=== PATIENT | female | born 1970 | race Hispanic/Latino ===

== ENCOUNTER 2017-08-28 18:52 | Emergency (ER) | payer MEDICARE, OTHER ==
[2017-08-28 20:03] LABS: #Basophils 0.1 thou/uL (0.0-0.2); #Eosinphils 0.2 thou/uL (0.0-0.7); #Lymphocytes 2.4 thou/uL (1.20-3.40); #Monocytes 0.3 thou/uL (0.11-0.59); #Neutrophils 4.8 thou/uL (1.40-6.50); %Basophils 0.7 % (0.0-1.0); %Eosinophils 2.3 % (0.0-10.0); %Monocytes 4.3 % (0.0-10.0); %Neutrophils 61.8 % (42.0-75.0); Hemoglobin 12.4 g/dL (12.0-16.0); Mean Corpuscular HGB CONC 34.7 g/dL (32.0-36.0); Mean Corpuscular Hemoglobin 28.8 pg (27.0-31.0); Mean Corpuscular Volume 83.1 fL (78.0-98.0); Mean Platelet Volume 11.7 fL (7.4-10.4); Platelet Count 135 thou/uL (130-400); RBC Distribution Width 12.1 % (11.5-14.5); Red Blood Cell (RBC) Count 4.32 mill/uL (4.20-5.40); White Blood Cell (WBC) Count 7.8 thou/uL (4.8-10.8)
[2017-08-28 20:28] LABS: ALT (SGPT) 43 U/L (8-55); AST (SGOT) 43 U/L (5-34); Albumin 3.7 g/dL (3.5-5.0); Alkaline Phosphatase 198 U/L (40-150); Anion Gap 11 mmol/L (10-20); BUN (Urea Nitrogen) 13 mg/dL (7.0-18.7); Bilirubin, Total 0.2 mg/dL (0.2-1.2); Calc. Creatinine Clearance 0 mL/min (70-130); Calcium 9.3 mg/dL (7.8-10.44); Carbon Dioxide 21 mmol/L (22-29); Chloride 109 mmol/L (98-107); Estimated GFR-MDRD 49; Globulin 3.2 g/dL (2.4-3.5); Glucose 229 mg/dL (70-105); Lipase 4 U/L (8-78); Potassium 4.1 mmol/L (3.5-5.1); Protein, Total 6.9 g/dL (6.0-8.3); Sodium 137 mmol/L (136-145)
[2017-08-28 23:13] LABS: Bilirubin Negative (Negative); Blood, Urine Small (Negative); Clarity CLEAR (Clear); Glucose, Urine (Dipstick) 500 mg/dL (Negative); Leukocyte Negative (Negative); Nitrite Negative (Negative); Protein, Urine (Dipstick) 300 mg/dL (Neg-Trace); Specific Gravity, Urine 1.023 (1.002-1.036); Urobilinogen 0.2 mg/dL (0.2-1.0); pH, Urine 5.5 (5.0-9.0)
[2017-08-28 23:16] LABS: Bacteria/HPF None Seen HPF (None Seen); Hyaline Casts/LPF 0-3 HYALINE CAST LPF (0-3 Hyaline); Pathc Cast-AUWi Flag 0.29 (0-2.49); Squamous Epithelial 0-3 HPF (0-3)
[2017-08-28] MEDS ORDERED: Ketorolac Tromethamine 60 MG/2 ML VIAL ONE (23:53)
== END 2017-08-28 23:59 | disposition home or self-care (01) ==
LOC: ERS 18:52
DX: M54.5 Low back pain (principal); E11.9 Type 2 diabetes mellitus without complications; F41.9 Anxiety disorder, unspecified; Z87.891 Personal history of nicotine dependence; Z79.899 Other long term (current) drug therapy; Z79.4 Long term (current) use of insulin
CPT/HCPCS: 36415; 36416; 80053; 81003; 81015; 83605; 83690; 85025; 87040; 87086; 99283; J1885; J2270

== ENCOUNTER 2018-01-24 19:57 | Emergency (ER) | payer MEDICARE, OTHER ==
[2018-01-24 20:36] LABS: #Basophils 0.1 thou/uL (0.0-0.2); #Eosinphils 0.2 thou/uL (0.0-0.7); #Lymphocytes 3.5 thou/uL (1.20-3.40); #Monocytes 0.5 thou/uL (0.11-0.59); #Neutrophils 7.1 thou/uL (1.40-6.50); %Basophils 0.6 % (0.0-1.0); %Eosinophils 1.7 % (0.0-10.0); %Monocytes 4.8 % (0.0-10.0); Hemoglobin 12.3 g/dL (12.0-16.0); Mean Corpuscular Hemoglobin 27.7 pg (27.0-31.0); Mean Platelet Volume 11.9 fL (7.4-10.4); Platelet Count 150 thou/uL (130-400); RBC Distribution Width 12.1 % (11.5-14.5); Red Blood Cell (RBC) Count 4.45 mill/uL (4.20-5.40); White Blood Cell (WBC) Count 11.4 thou/uL (4.8-10.8)
[2018-01-24 20:57] LABS: ALT (SGPT) 46 U/L (8-55); AST (SGOT) 44 U/L (5-34); Albumin 3.2 g/dL (3.5-5.0); Alkaline Phosphatase 196 U/L (40-150); Anion Gap 11 mmol/L (10-20); BUN (Urea Nitrogen) 8 mg/dL (7.0-18.7); Bilirubin, Total 0.2 mg/dL (0.2-1.2); Calc. Creatinine Clearance 0 mL/min (70-130); Calcium 8.9 mg/dL (7.8-10.44); Carbon Dioxide 26 mmol/L (22-29); Chloride 108 mmol/L (98-107); Estimated GFR-MDRD 72; Globulin 3.4 g/dL (2.4-3.5); Glucose 86 mg/dL (70-105); Lipase Less than 4 U/L (8-78); Protein, Total 6.6 g/dL (6.0-8.3); Sodium 141 mmol/L (136-145)
[2018-01-24 21:00] LABS: Bilirubin Negative (Negative); Blood, Urine Trace (Negative); Clarity CLEAR (Clear); Glucose, Urine (Dipstick) Negative (Negative); Leukocyte Negative (Negative); Nitrite Negative (Negative); Protein, Urine (Dipstick) 100 mg/dL (Neg-Trace); Urobilinogen 0.2 mg/dL (0.2-1.0); pH, Urine 7.5 (5.0-9.0)
[2018-01-24 21:01] LABS: Bacteria/HPF None Seen HPF (None Seen); Hyaline Casts/LPF 0-3 HYALINE CAST LPF (0-3 Hyaline); Squamous Epithelial 0-3 HPF (0-3); WBC/HPF 0-3 HPF (0-3)
[2018-01-24] MEDS ORDERED: Ibuprofen 800 MG TAB ONE (21:41)
--- NOTE | 2018-01-24 22:41 | ULT ---
GALLBLADDER ULTRASOUND: 01/24/18 HISTORY: Right upper quadrant pain. Real time imaging of the right upper quadrant shows a normal appearing gallbladder. Common duct is in the 5 mm range. No gallbladder wall thickening. The liver is of increased echogenicity measuring 18 cm in length. The pancreas is only partially visualized. In the pancreatic head region, there is an echogenic focus with shadowing which is probably within the pancreatic duct. Difficult to visualize as the pancreas is largely obscured. Right kidney is normal in size and not obstructed. IMPRESSION: 1. Fatty change of the liver. 2. Pancreatic stone which is probably within the pancreatic duct. POS: ROSALIA
[2018-01-24] MEDS ORDERED: Morphine 2 MG/ML SYRINGE ONE (23:13)
== END 2018-01-24 23:37 | disposition home or self-care (01) ==
LOC: ERS 19:57
DX: K86.89 Other specified diseases of pancreas (principal); I10 Essential (primary) hypertension; E11.9 Type 2 diabetes mellitus without complications; F41.9 Anxiety disorder, unspecified; Z87.891 Personal history of nicotine dependence; Z79.4 Long term (current) use of insulin; Z79.899 Other long term (current) drug therapy
CPT/HCPCS: 36415; 36416; 76705; 80053; 81003; 81015; 83690; 85025; 96361; 96374; J2270

== ENCOUNTER 2018-05-14 13:36 | Emergency (ER) | payer MEDICARE, OTHER ==
[2018-05-14] MEDS ORDERED: ISOVUE-370 76%-LOCM 1 ML ONE (13:46)
[2018-05-14] MEDS ORDERED: Acetaminophen 500 MG TAB ONE (14:24)
[2018-05-14] MEDS ORDERED: Ondansetron PF 4 MG/2 ML Vial ONE (14:24)
[2018-05-14 14:50] LABS: #Basophils 0.1 thou/uL (0.0-0.2); #Eosinphils 0.1 thou/uL (0.0-0.7); #Lymphocytes 3.6 thou/uL (1.20-3.40); #Monocytes 0.7 thou/uL (0.11-0.59); #Neutrophils 12.8 thou/uL (1.40-6.50); %Basophils 0.6 % (0.0-1.0); %Eosinophils 0.8 % (0.0-10.0); %Lymphocytes 20.7 % (21.0-51.0); %Monocytes 4.1 % (0.0-10.0); %Neutrophils 73.8 % (42.0-75.0); Hemoglobin 11.3 g/dL (12.0-16.0); Mean Corpuscular HGB CONC 33.3 g/dL (32.0-36.0); Mean Corpuscular Hemoglobin 28.1 pg (27.0-31.0); Mean Corpuscular Volume 84.5 fL (78.0-98.0); Mean Platelet Volume 12.2 fL (7.4-10.4); Platelet Count 143 thou/uL (130-400); RBC Distribution Width 12.2 % (11.5-14.5); Red Blood Cell (RBC) Count 4.03 mill/uL (4.20-5.40); White Blood Cell (WBC) Count 17.4 thou/uL (4.8-10.8)
[2018-05-14 15:02] LABS: ALT (SGPT) 22 U/L (8-55); AST (SGOT) 18 U/L (5-34); Albumin 3.4 g/dL (3.5-5.0); Alkaline Phosphatase 160 U/L (40-150); Anion Gap 11 mmol/L (10-20); BUN (Urea Nitrogen) 14 mg/dL (7.0-18.7); Bilirubin, Total 0.4 mg/dL (0.2-1.2); Calc. Creatinine Clearance 0 mL/min (70-130); Calcium 8.5 mg/dL (7.8-10.44); Carbon Dioxide 24 mmol/L (22-29); Chloride 105 mmol/L (98-107); Estimated GFR-MDRD 53; Globulin 2.8 g/dL (2.4-3.5); Glucose 199 mg/dL (70-105); Lipase Less than 4 U/L (8-78); Potassium 4.2 mmol/L (3.5-5.1); Protein, Total 6.2 g/dL (6.0-8.3); Sodium 136 mmol/L (136-145)
[2018-05-14 15:28] LABS: Bilirubin Negative (Negative); Blood, Urine Small (Negative); Clarity CLEAR (Clear); Glucose, Urine (Dipstick) Negative (Negative); Leukocyte Negative (Negative); Nitrite Negative (Negative); Protein, Urine (Dipstick) 100 mg/dL (Neg-Trace); Specific Gravity, Urine 1.008 (1.002-1.036); Urobilinogen 0.2 mg/dL (0.2-1.0)
[2018-05-14 15:29] LABS: Pregnancy Test - Urine (BHCG) Negative (Negative); Pregu Control Background? CLEAR/WHITE (CLR/WHITE); Pregu Control Bar Appear? YES (CONTROL BAR); Specific Gravity 1.008 (1.002-1.036)
[2018-05-14 15:31] LABS: Bacteria/HPF None Seen HPF (None Seen); Hyaline Casts/LPF 0-3 HYALINE CAST LPF (0-3 Hyaline); Pathc Cast-AUWi Flag 0.27 (0-2.49); RBC/HPF 0-3 HPF (0-3); Squamous Epithelial 0-3 HPF (0-3); WBC/HPF 0-3 HPF (0-3)
[2018-05-14] MEDS ORDERED: Ketorolac Tromethamine 30 MG/ML VIAL ONE (15:41)
--- NOTE | 2018-05-14 16:00 | CT ---
FCT abdomen and pelvis with IV contrast. Oral contrast was not administered. INDICATIONS: Abdominal pain COMPARISON: 11/10/2015 FINDINGS: The 7 mm nodule in the right lung base adjacent to the diaphragm is stable. Nonspecific interstitial markings in the posterior right lung base is noted. Liver, spleen, and pancreas appear unremarkable. Pancreatic calcifications are again seen. Mild pancr eatic atrophy, stable from prior exam. Stomach and duodenum appear unremarkable. Adrenal glands appear normal. Kidneys appear unremarkable. Collecting structures and urinary bladder appear unremarkable. Small bowel loops are normal caliber and exhibit normal fold pattern. Appendix is identified and appears unremarkable. Colon is unremarkable. Aorta is normal caliber. No evidence of retroperitoneal or mesenteric adenopathy. Patient appears to be posthysterectomy. Pelvic structures unremarkable. Subcutaneous tissues, abdominal wall, and muscular structures appear unremarkable. Osseous structures appear unremarkable. IMPRESSION: No acute findings
== END 2018-05-14 16:37 | disposition home or self-care (01) ==
LOC: ERS 13:36 → EEVIPCON 13:36 → ERS 16:37
DX: R50.9 Fever, unspecified (principal); R05 Cough; J02.9 Acute pharyngitis, unspecified; E11.9 Type 2 diabetes mellitus without complications; R19.7 Diarrhea, unspecified; I10 Essential (primary) hypertension; F41.9 Anxiety disorder, unspecified; F32.9 Major depressive disorder, single episode, unspecified; F17.290 Nicotine dependence, other tobacco product, uncomplicated; Z79.4 Long term (current) use of insulin; Z79.899 Other long term (current) drug therapy
CPT/HCPCS: 36416; 74177; 80053; 81003; 81015; 81025; 82150; 83690; 85025; 87804; 96361; 96374; 96375; J1885; J2405; Q9966

== ENCOUNTER 2018-08-16 20:32 | Emergency (ER) | payer MEDICARE, OTHER ==
[~2018-08-16 20:32] MED LIST: ISOVUE-370 76%-LOCM 1 ML ONE
[2018-08-16 21:23] LABS: Bilirubin Negative (Negative); Blood, Urine Negative (Negative); Clarity CLEAR (Clear); Glucose, Urine (Dipstick) Negative (Negative); Leukocyte Negative (Negative); Nitrite Negative (Negative); Protein, Urine (Dipstick) Trace mg/dL (Neg-Trace); Urobilinogen 0.2 mg/dL (0.2-1.0)
--- NOTE | 2018-08-16 21:26 | RAD ---
CHEST ONE VIEW: 08/16/18 COMPARISON: 11/10/15. HISTORY: Nausea. Dyspnea. FINDINGS: Normal cardiac silhouette. Lung volumes are slightly diminished due to decreased inspiratory effort. Interstitial prominence likely due to overall diminished lung volume. Component of chronic change is suspected. No mass or consolidation. No pneumothorax. Blunting of the left costophrenic angle likely due to component of atelectasis. IMPRESSION: 1. Diminished lung volumes likely due to poor inspiratory effort. 2. Superimposed chronic changes. 3. Left lower lobe atelectasis with blunting of the left costophrenic angle. POS: PPP
[2018-08-16 22:18] LABS: #Basophils 0.1 thou/uL (0.0-0.2); #Eosinphils 0.4 thou/uL (0.0-0.7); #Lymphocytes 4.5 thou/uL (1.20-3.40); #Neutrophils 9.6 thou/uL (1.40-6.50); %Basophils 0.5 % (0.0-1.0); %Eosinophils 2.3 % (0.0-10.0); %Monocytes 6.5 % (0.0-10.0); %Neutrophils 61.7 % (42.0-75.0); Hemoglobin 10.9 g/dL (12.0-16.0); Mean Corpuscular HGB CONC 33.1 g/dL (32.0-36.0); Mean Corpuscular Volume 84.6 fL (78.0-98.0); Mean Platelet Volume 12.2 fL (7.4-10.4); Platelet Count 190 thou/uL (130-400); RBC Distribution Width 12.4 % (11.5-14.5); Red Blood Cell (RBC) Count 3.88 mill/uL (4.20-5.40); White Blood Cell (WBC) Count 15.6 thou/uL (4.8-10.8)
[2018-08-16 22:38] LABS: ALT (SGPT) 28 U/L (8-55); AST (SGOT) 25 U/L (5-34); Albumin 3.2 g/dL (3.5-5.0); Alkaline Phosphatase 189 U/L (40-150); Anion Gap 12 mmol/L (10-20); BUN (Urea Nitrogen) 10 mg/dL (7.0-18.7); Bilirubin, Total 0.3 mg/dL (0.2-1.2); Calc. Creatinine Clearance 0 mL/min (70-130); Calcium 8.6 mg/dL (7.8-10.44); Carbon Dioxide 23 mmol/L (22-29); Chloride 107 mmol/L (98-107); Estimated GFR-MDRD 65; Globulin 3.1 g/dL (2.4-3.5); Lipase Less than 4 U/L (8-78); Potassium 3.9 mmol/L (3.5-5.1); Protein, Total 6.3 g/dL (6.0-8.3); Sodium 138 mmol/L (136-145)
[2018-08-16 22:41] LABS: Glucose 36 mg/dL (70-105)
[2018-08-16] MEDS ORDERED: Dextrose 50% Abboject 50 ML SYRINGE ONE (22:45)
[2018-08-16] MEDS ORDERED: Ondansetron PF 4 MG/2 ML Vial ONE (23:01)
[2018-08-16] MEDS ORDERED: Morphine 4 MG/ML VIAL ONE ×2 (23:01→23:49)
--- NOTE | 2018-08-16 23:34 | CT ---
EXAM: Abdomen and pelvic CT scan with contrast: HISTORY: Abdominal pain with nausea and diarrhea chronic pancreatitis COMPARISON: 05/14/2018 FINDINGS: The visualized lung bases are clear. Liver: Fatty Gallbladder:Unremarkable. Pancreas:Scattered calcifications evidence for chronic pancreatitis. Small pancreas with dilated panc reatic duct. Stable from prior study. Spleen:Unremarkable. Adrenal glands:Unremarkable. Kidneys:No renal calculus or acute obstruction.No solid or cystic mass. No evidence for bowel obstruction. No CT evidence for acute appendicitis. The urinary bladder is unremarkable. No abscess, adenopathy, or abnormal fluid collection within the abdomen or pelvis. IMPRESSION: Fatty liver. Somewhat small pancreas with dilated pancreatic duct with calcifications evidence for ch ronic pancreatitis. Stable from prior study.
== END 2018-08-17 01:05 | disposition home or self-care (01) ==
LOC: ERS 20:32
DX: K86.1 Other chronic pancreatitis (principal); R11.0 Nausea; E11.9 Type 2 diabetes mellitus without complications; F41.9 Anxiety disorder, unspecified; F32.9 Major depressive disorder, single episode, unspecified; Z87.891 Personal history of nicotine dependence; Z79.4 Long term (current) use of insulin; Z79.899 Other long term (current) drug therapy
CPT/HCPCS: 36415; 36416; 71045; 74177; 80053; 81003; 83690; 85025; 94799; 96374; 96375; 96376; J2270; J2405

== ENCOUNTER 2020-05-02 17:39 | Inpatient (IN) | payer MEDICARE, OTHER ==
[~2020-05-02 17:39] MED LIST changes: -ISOVUE-370 76%-LOCM 1 ML ONE; +Iopamidol-370 76% 500 ML 1 ML ONE
[2020-05-02] MEDS ORDERED: Morphine 4 MG/ML VIAL ONE (18:40)
[2020-05-02] MEDS ORDERED: Promethazine HCl 25 MG/ML VIAL ONE (18:43)
[2020-05-02 19:00] LABS: #Basophils 0.1 thou/uL (0.0-0.2); #Lymphocytes 2.4 thou/uL (1.20-3.40); #Monocytes 0.3 thou/uL (0.11-0.59); #Neutrophils 13.1 thou/uL (1.40-6.50); %Basophils 0.5 % (0.0-1.0); %Eosinophils 0.2 % (0.0-10.0); %Lymphocytes 15.4 % (21.0-51.0); %Monocytes 1.6 % (0.0-10.0); %Neutrophils 82.3 % (42.0-75.0); Hemoglobin 13.8 g/dL (12.0-16.0); Mean Corpuscular HGB CONC 32.8 g/dL (32.0-36.0); Mean Corpuscular Hemoglobin 28.2 pg (27.0-31.0); Mean Corpuscular Volume 86.1 fL (78.0-98.0); Platelet Count 194 thou/uL (130-400); RBC Distribution Width 12.4 % (11.5-14.5); Red Blood Cell (RBC) Count 4.87 mill/uL (4.20-5.40); White Blood Cell (WBC) Count 15.9 thou/uL (4.8-10.8)
[2020-05-02 19:18] LABS: ALT (SGPT) 26 U/L (8-55); AST (SGOT) 29 U/L (5-34); Albumin 3.9 g/dL (3.5-5.0); Alkaline Phosphatase 232 U/L (40-110); Anion Gap 16 mmol/L (10-20); BUN (Urea Nitrogen) 7 mg/dL (9.8-20.1); Bilirubin, Total 0.5 mg/dL (0.2-1.2); Calc. Creatinine Clearance 0 mL/min (70-130); Carbon Dioxide 22 mmol/L (22-29); Chloride 101 mmol/L (98-107); Globulin 4.2 g/dL (2.4-3.5); Glucose 236 mg/dL (70-105); Lipase Less than 4 U/L (8-78); Potassium 6.3 mmol/L (3.5-5.1); Protein, Total 8.1 g/dL (6.0-8.3); Sodium 133 mmol/L (136-145)
[2020-05-02 19:22] LABS: Large Platelets SLIGHT; MDiff Complete? YES; Platelet Morphology Comment Appears Adequate; RBC Morphology Normal
[2020-05-02 21:17] LABS: Anion Gap 14 mmol/L (10-20); BUN (Urea Nitrogen) 8 mg/dL (9.8-20.1); Calc. Creatinine Clearance 0 mL/min (70-130); Carbon Dioxide 20 mmol/L (22-29); Chloride 105 mmol/L (98-107); Glucose 210 mg/dL (70-105); Sodium 133 mmol/L (136-145)
[2020-05-02] MEDS ORDERED: Dextrose 5% in Water 1,000 ML IV PRN (22:53)
[2020-05-02] MEDS ORDERED: Dextrose 50% Abboject 50 ML SYRINGE SLOW IVP PRN (22:53)
[2020-05-02 23:29] LABS: CK (CPK) 28 U/L (29-168); Uric Acid 5.3 mg/dL (2.6-6.0)
[2020-05-03 00:30] VITALS: BMI 28.9
[2020-05-03] MEDS: Ondansetron ODT 4 MG TAB PO PRN (01:18)
[2020-05-03] MEDS: Sodium Chloride 0.9% 1,000 ML IV SCH ×4 (01:18→21:10)
[2020-05-03] MEDS: Morphine 2 MG/ML VIAL SLOW IVP PRN ×5 (01:18→19:32)
[2020-05-03] MEDS ORDERED: Dextrose 50% Abboject 50 ML SYRINGE SLOW IVP SCH (02:14)
[2020-05-03] MEDS ORDERED: Insulin Regular 300 UNITS/3 ML VIAL IVP SCH (02:15)
[2020-05-03 04:41] LABS: #Basophils 0.1 thou/uL (0.0-0.2); #Eosinphils 0.1 thou/uL (0.0-0.7); #Lymphocytes 2.6 thou/uL (1.20-3.40); #Monocytes 0.6 thou/uL (0.11-0.59); %Basophils 0.4 % (0.0-1.0); %Eosinophils 0.6 % (0.0-10.0); %Lymphocytes 18.4 % (21.0-51.0); %Monocytes 3.8 % (0.0-10.0); %Neutrophils 76.8 % (42.0-75.0); Hemoglobin 12.4 g/dL (12.0-16.0); Mean Corpuscular HGB CONC 32.6 g/dL (32.0-36.0); Mean Corpuscular Volume 85.8 fL (78.0-98.0); Mean Platelet Volume 12.2 fL (7.4-10.4); Platelet Count 165 thou/uL (130-400); RBC Distribution Width 12.4 % (11.5-14.5); Red Blood Cell (RBC) Count 4.44 mill/uL (4.20-5.40); White Blood Cell (WBC) Count 14.3 thou/uL (4.8-10.8)
[2020-05-03 05:00] LABS: Anion Gap 13 mmol/L (10-20); BUN (Urea Nitrogen) 6 mg/dL (9.8-20.1); Calc. Creatinine Clearance 91 mL/min (70-130); Calcium 8.8 mg/dL (7.8-10.44); Carbon Dioxide 21 mmol/L (22-29); Chloride 104 mmol/L (98-107); Glucose 316 mg/dL (70-105); Sodium 134 mmol/L (136-145)
[2020-05-03] MEDS: HumaLOG 300 UNITS/3 ML VIAL SC PRN (05:14)
[2020-05-03] MEDS: Ondansetron PF 4 MG/2 ML Vial IVP PRN ×2 (05:14→10:44)
[2020-05-03 08:30] LABS: SARS-CoV-2 PCR by NAA Not Detected (NotDetected)
[2020-05-03] MEDS: Enoxaparin Sodium 40 MG/0.4 ML SYRINGE SC SCH (09:02)
[2020-05-03] MEDS: Pantoprazole 40 MG VIAL IVP SCH ×2 (09:02→19:35)
[2020-05-03] MEDS: hydrALAZINE 20 MG/ML VIAL SLOW IVP PRN (11:38)
[2020-05-03] MEDS: Acetaminophen 325 MG TAB PO PRN ×2 (17:33→21:09)
[2020-05-04] MEDS: Morphine 2 MG/ML VIAL SLOW IVP PRN ×3 (00:01→11:57)
[2020-05-04] MEDS: Acetaminophen 325 MG TAB PO PRN ×3 (03:51→11:57)
[2020-05-04 05:27] LABS: #Lymphocytes 2.9 thou/uL (1.20-3.40); #Monocytes 0.6 thou/uL (0.11-0.59); #Neutrophils 12.1 thou/uL (1.40-6.50); %Basophils 0.1 % (0.0-1.0); %Eosinophils 0.2 % (0.0-10.0); %Lymphocytes 18.5 % (21.0-51.0); %Monocytes 3.5 % (0.0-10.0); %Neutrophils 77.6 % (42.0-75.0); Hemoglobin 12.5 g/dL (12.0-16.0); Mean Corpuscular HGB CONC 33.4 g/dL (32.0-36.0); Mean Corpuscular Hemoglobin 28.4 pg (27.0-31.0); Mean Corpuscular Volume 85.2 fL (78.0-98.0); Mean Platelet Volume 12.4 fL (7.4-10.4); Platelet Count 184 thou/uL (130-400); RBC Distribution Width 12.2 % (11.5-14.5); White Blood Cell (WBC) Count 15.6 thou/uL (4.8-10.8)
[2020-05-04 05:55] LABS: Anion Gap 18 mmol/L (10-20); BUN (Urea Nitrogen) 8 mg/dL (9.8-20.1); Calc. Creatinine Clearance 89 mL/min (70-130); Calcium 8.7 mg/dL (7.8-10.44); Carbon Dioxide 17 mmol/L (22-29); Chloride 100 mmol/L (98-107); Glucose 321 mg/dL (70-105); Potassium 4.2 mmol/L (3.5-5.1); Sodium 131 mmol/L (136-145)
[2020-05-04] MEDS: Sodium Chloride 0.9% 1,000 ML IV SCH (06:01)
[2020-05-04] MEDS: HumaLOG 300 UNITS/3 ML VIAL SC PRN ×2 (06:25→11:58)
[2020-05-04] MEDS: Enoxaparin Sodium 40 MG/0.4 ML SYRINGE SC SCH (07:57)
[2020-05-04] MEDS: Pantoprazole 40 MG VIAL IVP SCH (07:58)
[2020-05-04] MEDS: Ondansetron ODT 4 MG TAB PO PRN (08:04)
[2020-05-04 12:09] VITALS: TEMP 97.8
[2020-05-04] MEDS: hydrALAZINE 20 MG/ML VIAL SLOW IVP PRN (13:24)
[2020-05-04 15:03] VITALS: BP 164/74
== END 2020-05-04 16:05 | disposition home or self-care (01) | DRG 638 ==
LOC: ERS 17:39 → 2SW 21:35 → OBSVTOIN 05-03 10:50
PROVIDERS: ADMIT Student in an Organized Health Care Education/Training Program; ATTEND Hospitalist
DX: E11.69 Type 2 diabetes mellitus with other specified complication (principal); K86.1 Other chronic pancreatitis; K21.9 Gastro-esophageal reflux disease without esophagitis; I10 Essential (primary) hypertension; Z88.8 Allergy status to other drugs, medicaments and biological substances; Z79.82 Long term (current) use of aspirin; Z79.4 Long term (current) use of insulin; G89.29 Other chronic pain; Z95.5 Presence of coronary angioplasty implant and graft; Z90.710 Acquired absence of both cervix and uterus; Z98.51 Tubal ligation status; Z87.891 Personal history of nicotine dependence; E87.5 Hyperkalemia; M54.9 Dorsalgia, unspecified
CPT/HCPCS: 36415; 36416; 71045; 74177; 80048; 80053; 82533; 82550; 83605; 83690; 84100; 84484; 84550; 85025; 87040; 87635; 93005; 94760; 96365; 96372; 96375; 96376; C9113; G0378; J0360; J1650; J1815; J2270; J2405; J2550; Q0162; Q9967; U0003; U0005

== ENCOUNTER 2020-05-12 13:04 | Emergency (ER) | payer MEDICARE, OTHER ==
[2020-05-12] MEDS ORDERED: Fentanyl 100 MCG/2 ML VIAL ONE (13:37)
[2020-05-12 13:38] LABS: Hemoglobin 12.8 g/dL (12.0-16.0); Mean Corpuscular Hemoglobin 27.8 pg (27.0-31.0); Mean Corpuscular Volume 84.4 fL (78.0-98.0); Platelet Count 168 thou/uL (130-400); Red Blood Cell (RBC) Count 4.61 mill/uL (4.20-5.40); White Blood Cell (WBC) Count 13.9 thou/uL (4.8-10.8)
[2020-05-12 13:58] LABS: Mean Platelet Volume 13.7 fL (7.4-10.4)
[2020-05-12 13:59] LABS: #Basophils 0.1 thou/uL (0.0-0.2); #Eosinphils 0.2 thou/uL (0.0-0.7); #Lymphocytes 3.5 thou/uL (1.20-3.40); #Monocytes 0.7 thou/uL (0.11-0.59); %Basophils 0.7 % (0.0-1.0); %Eosinophils 1.7 % (0.0-10.0); %Lymphocytes 24.9 % (21.0-51.0); %Monocytes 5.6 % (0.0-10.0); %Neutrophils 66.4 % (42.0-75.0); Large Platelets SLIGHT; MDiff Complete? YES; Platelet Morphology Comment Appears Adequate; RBC Morphology Normal
[2020-05-12 14:13] LABS: ALT (SGPT) 88 U/L (8-55); AST (SGOT) 95 U/L (5-34); Albumin 3.8 g/dL (3.5-5.0); Alkaline Phosphatase 190 U/L (40-110); Anion Gap 14 mmol/L (10-20); BUN (Urea Nitrogen) 38 mg/dL (9.8-20.1); Bilirubin, Total 0.2 mg/dL (0.2-1.2); CK (CPK) 21 U/L (29-168); Calc. Creatinine Clearance 0 mL/min (70-130); Calcium 8.7 mg/dL (7.8-10.44); Carbon Dioxide 14 mmol/L (22-29); Chloride 114 mmol/L (98-107); Globulin 3.3 g/dL (2.4-3.5); Glucose 246 mg/dL (70-105); Lipase 6 U/L (8-78); Potassium 4.6 mmol/L (3.5-5.1); Protein, Total 7.1 g/dL (6.0-8.3); Sodium 137 mmol/L (136-145)
== END 2020-05-12 16:15 | disposition home or self-care (01) ==
LOC: ERS 13:04
DX: R55 Syncope and collapse (principal); I10 Essential (primary) hypertension; E11.9 Type 2 diabetes mellitus without complications; F17.210 Nicotine dependence, cigarettes, uncomplicated; Z79.4 Long term (current) use of insulin; Z79.899 Other long term (current) drug therapy
CPT/HCPCS: 36416; 70450; 80053; 82550; 83690; 85025; 93005; 96374; J3010

== ENCOUNTER 2020-05-26 12:46 | Inpatient (IN) | payer MEDICARE, OTHER ==
[2020-05-26] MEDS ORDERED: Fentanyl 100 MCG/2 ML VIAL ONE (13:21)
[2020-05-26] MEDS ORDERED: levETIRAcetam in NS 100 ML ONE (13:31)
[2020-05-26 13:40] LABS: Actual Bicarbonate (HCO3a) 20.6 mEq/L (22-28); Analyzer IN Cardio ER; Base Excess (BEa) -3.6 mEq/L (-2.0 to +3.0); CO2 Tension 34.4 mmHg (35.0-45.0); Calcium, Ionized (arterial) 1.13 mmol/L (1.12-1.30); Carboxyhemoglobin (COHb) 0.1 gm% (0.0-3.0); Hemoglobin (Hb) 11.9 g/dL (12.0-16.0); O2 Tension (PaO2), arterial 197.5 mmHg (80.0-100.0); Potassium - ABG Lab 4.76 mmol/L (3.70-5.30)
[2020-05-26 13:49] LABS: Puncture Site RRA
[2020-05-26 13:51] LABS: #Lymphocytes 1.6 thou/uL (1.20-3.40); #Monocytes 0.4 thou/uL (0.11-0.59); #Neutrophils 13.2 thou/uL (1.40-6.50); %Basophils 0.1 % (0.0-1.0); %Eosinophils 0.2 % (0.0-10.0); %Lymphocytes 10.6 % (21.0-51.0); %Monocytes 2.3 % (0.0-10.0); %Neutrophils 86.8 % (42.0-75.0); Hemoglobin 11.1 g/dL (12.0-16.0); Mean Corpuscular HGB CONC 32.6 g/dL (32.0-36.0); Mean Corpuscular Hemoglobin 28.5 pg (27.0-31.0); Mean Corpuscular Volume 87.3 fL (78.0-98.0); Mean Platelet Volume 12.1 fL (7.4-10.4); Platelet Count 197 thou/uL (130-400); RBC Distribution Width 12.4 % (11.5-14.5); Red Blood Cell (RBC) Count 3.88 mill/uL (4.20-5.40); White Blood Cell (WBC) Count 15.2 thou/uL (4.8-10.8)
[2020-05-26 13:55] LABS: Prothrombin Time 15.2 sec (12.0-14.7)
[2020-05-26 13:56] LABS: PTT 27.7 sec (22.9-36.1)
[2020-05-26 13:58] LABS: INR-International Normal Ratio 1.2
[2020-05-26 14:11] LABS: ALT (SGPT) 27 U/L (8-55); AST (SGOT) 39 U/L (5-34); Alkaline Phosphatase 205 U/L (40-110); Anion Gap 13 mmol/L (10-20); BUN (Urea Nitrogen) 7 mg/dL (9.8-20.1); Bilirubin, Total 0.4 mg/dL (0.2-1.2); CK (CPK) 101 U/L (29-168); CKMB 3.8 ng/mL (0-6.6); Calc. Creatinine Clearance 0 mL/min (70-130); Calcium 8.1 mg/dL (7.8-10.44); Carbon Dioxide 22 mmol/L (22-29); Chloride 106 mmol/L (98-107); Globulin 3.3 g/dL (2.4-3.5); Glucose 131 mg/dL (70-105); Lipase Less than 4 U/L (8-78); Magnesium 1.2 mg/dL (1.6-2.6); Potassium 5.4 mmol/L (3.5-5.1); Protein, Total 6.3 g/dL (6.0-8.3); Sodium 136 mmol/L (136-145)
[2020-05-26 14:32] LABS: Bacteria/HPF None Seen HPF (None Seen); Bilirubin Negative (Negative); Blood, Urine 1+ (Negative); Clarity Clear (Clear); Glucose, Urine (Dipstick) Normal (Negative); Ketone, Urine Negative (Negative); Leukocyte Negative Leu/uL (Negative); Nitrite Negative (Negative); Protein, Urine (Dipstick) Negative (Neg-Trace); RBC/HPF 21-50 HPF (0-3); Squamous Epithelial 0-3 HPF (0-3); Urobilinogen Normal mg/dL (Less than 2); WBC/HPF 0-3 HPF (0-3)
[2020-05-26] MEDS ORDERED: Ventilator Sedation Protocol 1 EACH FS ONE (15:43)
[2020-05-26] MEDS ORDERED: Electrolyte Replacement Protocol 1 EACH FS ONE (15:43)
[2020-05-26] MEDS ORDERED: Acetaminophen 650 MG Suppository PR PRN (15:47)
[2020-05-26] MEDS ORDERED: Bisacodyl 10 MG SUPP PR PRN (15:47)
[2020-05-26] MEDS ORDERED: Ondansetron PF 4 MG/2 ML Vial IVP PRN (15:47)
[2020-05-26] MEDS ORDERED: Electrolyte Replacement Protocol FS PRN (16:00)
[2020-05-26] MEDS ORDERED: Fentanyl CADD 100 ML IV SCH (16:00)
[2020-05-26] MEDS ORDERED: Fentanyl BOLUS 250 ML IVPB PRN (16:00)
[2020-05-26] MEDS ORDERED: cefTRIAXone\\ROCEPHIN 1 GM in Sodium Chloride 0.9% 100 ML IVPB SCH (16:00)
[2020-05-26] MEDS ORDERED: Morphine 2 MG/ML VIAL SLOW IVP PRN (16:00)
[2020-05-26] MEDS ORDERED: Propofol BOLUS 1,000 MG/100 ML VIAL IV PRN (16:00)
[2020-05-26] MEDS ORDERED: DISCONTINUE PREVIOUS NARCOTIC PAIN MEDICATIONS AND BENZODIAZEPINES FS SCH (16:00)
[2020-05-26] MEDS ORDERED: Vancomycin 1.5 GRAM/300 ML BAG 1.5 GM in Premix Bag 1 BAG IVPB SCH (16:15)
[2020-05-26 16:21] LABS: SARS-CoV-2 NAA Rapid Test Not Detected (NotDetected)
[2020-05-26] MEDS ORDERED: Magnesium Sulfate 3 GM in Sodium Chloride 0.9% 100 ML IVPB SCH (17:00)
[2020-05-26] MEDS: Sodium Chloride 0.9% 1,000 ML IV SCH (17:56)
[2020-05-26 20:15] LABS: Troponin I 0.188 ng/mL (< 0.028)
[2020-05-26] MEDS: Propofol 1,000 MG/100 ML VIAL IV PRN (21:01)
[2020-05-26] MEDS: Famotidine/PF 20 mg/2ml Vial SLOW IVP SCH (21:01)
[2020-05-26] MEDS: Atorvastatin Calcium 40 MG TAB PO SCH (21:01)
[2020-05-26 22:11] LABS: Troponin I 0.295 ng/mL (< 0.028)
[2020-05-27] MEDS: Sodium Chloride 0.9% 1,000 ML IV SCH ×3 (02:05→21:42)
[2020-05-27 04:53] LABS: Anion Gap 12 mmol/L (10-20); BUN (Urea Nitrogen) 5 mg/dL (9.8-20.1); Calc. Creatinine Clearance 107 mL/min (70-130); Calcium 8.4 mg/dL (7.8-10.44); Carbon Dioxide 22 mmol/L (22-29); Chloride 109 mmol/L (98-107); Glucose 80 mg/dL (70-105); Potassium 4.3 mmol/L (3.5-5.1); Sodium 139 mmol/L (136-145)
[2020-05-27] MEDS: Vancomycin HCl 750 MG in Sodium Chloride 0.9% 250 ML 250 ML IVPB SCH ×2 (05:29→16:44)
[2020-05-27] MEDS ORDERED: Magnesium 2 GM/50 ML 2 GM in Premix Bag 1 BAG IVPB SCH (06:30)
[2020-05-27 07:20] LABS: #Basophils 0.1 thou/uL (0.0-0.2); #Eosinphils 0.1 thou/uL (0.0-0.7); #Lymphocytes 3.3 thou/uL (1.20-3.40); #Monocytes 0.6 thou/uL (0.11-0.59); #Neutrophils 12.7 thou/uL (1.40-6.50); %Basophils 0.5 % (0.0-1.0); %Eosinophils 0.3 % (0.0-10.0); %Lymphocytes 19.6 % (21.0-51.0); %Monocytes 3.7 % (0.0-10.0); %Neutrophils 75.8 % (42.0-75.0); Hemoglobin 10.9 g/dL (12.0-16.0); Mean Corpuscular HGB CONC 33.6 g/dL (32.0-36.0); Mean Corpuscular Hemoglobin 28.7 pg (27.0-31.0); Mean Corpuscular Volume 85.3 fL (78.0-98.0); Mean Platelet Volume 11.8 fL (7.4-10.4); Platelet Count 203 thou/uL (130-400); RBC Distribution Width 12.4 % (11.5-14.5); Red Blood Cell (RBC) Count 3.82 mill/uL (4.20-5.40); White Blood Cell (WBC) Count 16.8 thou/uL (4.8-10.8)
[2020-05-27 07:23] LABS: Actual Bicarbonate (HCO3a) 20.5 mEq/L (22-28); Base Excess (BEa) -0.8 mEq/L (-2.0 to +3.0); CO2 Tension 25.1 mmHg (35.0-45.0); Calcium, Ionized (arterial) 1.14 mmol/L (1.12-1.30); Carboxyhemoglobin (COHb) 0.2 gm% (0.0-3.0); Hemoglobin (Hb) 12.3 g/dL (12.0-16.0); Potassium - ABG Lab 4.14 mmol/L (3.70-5.30); Puncture Site LRA; pH, Arterial 7.53 (7.35-7.45)
[2020-05-27 07:24] LABS: ALV-art Gradient 112.825 mmHg (0-20)
[2020-05-27] MEDS: Famotidine/PF 20 mg/2ml Vial SLOW IVP SCH (10:03)
[2020-05-27] MEDS: Pantoprazole 40 MG VIAL IVP SCH (10:03)
[2020-05-27] MEDS: Enoxaparin Sodium 40 MG/0.4 ML SYRINGE SC SCH (10:03)
[2020-05-27] MEDS: Aspirin 300 MG Suppository PR SCH (10:03)
[2020-05-27] MEDS: Propofol 1,000 MG/100 ML VIAL IV PRN (11:32)
[2020-05-27] MEDS ORDERED: Cefepime 2 GM in Sodium Chloride 0.9% 100 ML IVPB SCH (14:00)
[2020-05-27] MEDS ORDERED: Clindamycin/D5W 600 MG in Premix Bag 1 BAG IVPB SCH (14:00)
[2020-05-27] MEDS: Piperacillin/Tazobactam 3.375 GM in Sodium Chloride 0.9% 100 ML IVPB SCH ×2 (15:16→19:41)
[2020-05-27] MEDS ORDERED: Piperacillin/Tazobactam 3.375 GM in Sodium Chloride 0.9% 100 ML IVPB SCH (18:00)
[2020-05-27] MEDS ORDERED: Dextrose 5% in Water 1,000 ML IV PRN (19:45)
[2020-05-27] MEDS ORDERED: Dextrose 50% Abboject 50 ML SYRINGE IVP PRN (19:45)
[2020-05-27] MEDS: Atorvastatin Calcium 40 MG TAB PO SCH (21:41)
[2020-05-27] MEDS: Lorazepam 2 MG/ML VIAL SLOW IVP PRN (22:36)
[2020-05-28] MEDS: Propofol 1,000 MG/100 ML VIAL IV PRN ×6 (00:23→20:34)
[2020-05-28] MEDS: Lorazepam 2 MG/ML VIAL SLOW IVP PRN (00:23)
[2020-05-28] MEDS: Piperacillin/Tazobactam 3.375 GM in Sodium Chloride 0.9% 100 ML IVPB SCH ×4 (02:21→20:34)
[2020-05-28 03:58] LABS: #Basophils 0.1 thou/uL (0.0-0.2); #Eosinphils 0.1 thou/uL (0.0-0.7); #Lymphocytes 4.9 thou/uL (1.20-3.40); #Neutrophils 7.5 thou/uL (1.40-6.50); %Basophils 0.7 % (0.0-1.0); %Lymphocytes 35.9 % (21.0-51.0); %Monocytes 7.6 % (0.0-10.0); %Neutrophils 54.8 % (42.0-75.0); Hemoglobin 11.5 g/dL (12.0-16.0); Mean Corpuscular HGB CONC 33.5 g/dL (32.0-36.0); Mean Corpuscular Hemoglobin 28.7 pg (27.0-31.0); Mean Corpuscular Volume 85.5 fL (78.0-98.0); Mean Platelet Volume 11.3 fL (7.4-10.4); Platelet Count 186 thou/uL (130-400); RBC Distribution Width 12.4 % (11.5-14.5); White Blood Cell (WBC) Count 13.7 thou/uL (4.8-10.8)
[2020-05-28] MEDS: Insulin Regular 300 UNITS/3 ML VIAL SC PRN ×2 (04:12→18:04)
[2020-05-28] MEDS: Vancomycin HCl 750 MG in Sodium Chloride 0.9% 250 ML 250 ML IVPB SCH (04:14)
[2020-05-28 04:22] LABS: Vancomycin, Trough 11.7 ug/mL
[2020-05-28 04:23] LABS: Anion Gap 14 mmol/L (10-20); BUN (Urea Nitrogen) 5 mg/dL (9.8-20.1); Calc. Creatinine Clearance 101 mL/min (70-130); Calcium 8.6 mg/dL (7.8-10.44); Carbon Dioxide 20 mmol/L (22-29); Chloride 112 mmol/L (98-107); Glucose 212 mg/dL (70-105); Potassium 4.1 mmol/L (3.5-5.1); Sodium 142 mmol/L (136-145)
[2020-05-28 08:18] LABS: Actual Bicarbonate (HCO3a) 22.7 mEq/L (22-28); Base Excess (BEa) -0.6 mEq/L (-2.0 to +3.0); CO2 Tension 33.4 mmHg (35.0-45.0); Calcium, Ionized (arterial) 1.16 mmol/L (1.12-1.30); Carboxyhemoglobin (COHb) 0.5 gm% (0.0-3.0); Hemoglobin (Hb) 12.1 g/dL (12.0-16.0); O2 Tension (PaO2), arterial 101.3 mmHg (80.0-100.0); Potassium - ABG Lab 3.29 mmol/L (3.70-5.30); pH, Arterial 7.45 (7.35-7.45)
[2020-05-28 08:19] LABS: Puncture Site LRA
[2020-05-28] MEDS: Sodium Chloride 0.9% 1,000 ML IV SCH ×2 (08:22→17:59)
[2020-05-28] MEDS: Aspirin 300 MG Suppository PR SCH (08:26)
[2020-05-28] MEDS: Pantoprazole 40 MG VIAL IVP SCH (08:27)
[2020-05-28] MEDS: Enoxaparin Sodium 40 MG/0.4 ML SYRINGE SC SCH (08:27)
[2020-05-28] MEDS: Vancomycin 1 GM in Premix Bag 1 BAG IVPB SCH (15:56)
[2020-05-28] MEDS: Atorvastatin Calcium 40 MG TAB PO SCH (20:35)
[2020-05-29] MEDS: Propofol 1,000 MG/100 ML VIAL IV PRN ×2 (00:10→04:08)
[2020-05-29] MEDS: Insulin Regular 300 UNITS/3 ML VIAL SC PRN ×2 (00:36→06:34)
[2020-05-29] MEDS: Piperacillin/Tazobactam 3.375 GM in Sodium Chloride 0.9% 100 ML IVPB SCH ×4 (02:34→20:09)
[2020-05-29] MEDS: Vancomycin 1 GM in Premix Bag 1 BAG IVPB SCH ×2 (04:08→16:02)
[2020-05-29 06:36] LABS: #Eosinphils 0.4 thou/uL (0.0-0.7); #Monocytes 0.6 thou/uL (0.11-0.59); #Neutrophils 5.8 thou/uL (1.40-6.50); %Basophils 0.4 % (0.0-1.0); %Eosinophils 3.7 % (0.0-10.0); %Lymphocytes 30.6 % (21.0-51.0); %Monocytes 6.3 % (0.0-10.0); %Neutrophils 59.1 % (42.0-75.0); Hemoglobin 10.2 g/dL (12.0-16.0); Mean Corpuscular HGB CONC 32.2 g/dL (32.0-36.0); Mean Corpuscular Hemoglobin 27.5 pg (27.0-31.0); Mean Corpuscular Volume 85.5 fL (78.0-98.0); Mean Platelet Volume 11.1 fL (7.4-10.4); Platelet Count 183 thou/uL (130-400); RBC Distribution Width 12.4 % (11.5-14.5); White Blood Cell (WBC) Count 9.8 thou/uL (4.8-10.8)
[2020-05-29 06:54] LABS: Anion Gap 16 mmol/L (10-20); BUN (Urea Nitrogen) 7 mg/dL (9.8-20.1); Calc. Creatinine Clearance 97 mL/min (70-130); Calcium 8.3 mg/dL (7.8-10.44); Carbon Dioxide 19 mmol/L (22-29); Chloride 108 mmol/L (98-107); Glucose 299 mg/dL (70-105); Potassium 3.5 mmol/L (3.5-5.1); Sodium 139 mmol/L (136-145)
[2020-05-29] MEDS ORDERED: Potassium Chloride 40 MEQ in Sodium Chloride 0.9% 250 ML 250 ML IVPB SCH (07:15)
[2020-05-29 07:32] LABS: Actual Bicarbonate (HCO3a) 22.1 mEq/L (22-28); Base Excess (BEa) -0.2 mEq/L (-2.0 to +3.0); CO2 Tension 28.7 mmHg (35.0-45.0); Calcium, Ionized (arterial) 1.15 mmol/L (1.12-1.30); Carboxyhemoglobin (COHb) 0.3 gm% (0.0-3.0); Hemoglobin (Hb) 10.6 g/dL (12.0-16.0); O2 Tension (PaO2), arterial 79.9 mmHg (80.0-100.0); Potassium - ABG Lab 3.34 mmol/L (3.70-5.30); pH, Arterial 7.51 (7.35-7.45)
[2020-05-29 07:35] LABS: ALV-art Gradient 33.955 mmHg (0-20); Puncture Site RRA
[2020-05-29] MEDS: Pantoprazole 40 MG VIAL IVP SCH (08:12)
[2020-05-29] MEDS: Enoxaparin Sodium 40 MG/0.4 ML SYRINGE SC SCH (08:12)
[2020-05-29] MEDS: Sodium Chloride 0.9% 1,000 ML IV SCH ×3 (08:35→19:14)
[2020-05-29] MEDS ORDERED: Aspirin 325 MG TAB PO SCH (09:00)
[2020-05-29] MEDS ORDERED: DC Sedation Protocol FS ONE (11:12)
[2020-05-29 15:52] LABS: Vancomycin, Trough 16.2 ug/mL
[2020-05-29] MEDS ORDERED: Dextrose 50% Abboject 50 ML SYRINGE SLOW IVP PRN (15:58)
[2020-05-29] MEDS ORDERED: Dextrose 5% in Water 1,000 ML IV PRN (15:58)
[2020-05-29] MEDS: Atorvastatin Calcium 40 MG TAB PO SCH (21:15)
[2020-05-29] MEDS: Lantus 1000 UNITS/10 ML VIAL SC SCH (21:22)
[2020-05-30] MEDS: Piperacillin/Tazobactam 3.375 GM in Sodium Chloride 0.9% 100 ML IVPB SCH ×4 (01:40→20:16)
[2020-05-30] MEDS ORDERED: Piperacillin/Tazobactam 3.375 GM VIAL ONE (01:43)
[2020-05-30 03:46] LABS: #Basophils 0.1 thou/uL (0.0-0.2); #Eosinphils 0.3 thou/uL (0.0-0.7); #Monocytes 0.7 thou/uL (0.11-0.59); #Neutrophils 7.6 thou/uL (1.40-6.50); %Basophils 0.8 % (0.0-1.0); %Eosinophils 2.4 % (0.0-10.0); %Lymphocytes 25.5 % (21.0-51.0); %Monocytes 5.7 % (0.0-10.0); %Neutrophils 65.5 % (42.0-75.0); Hemoglobin 12.1 g/dL (12.0-16.0); Mean Corpuscular HGB CONC 32.9 g/dL (32.0-36.0); Mean Corpuscular Hemoglobin 28.4 pg (27.0-31.0); Mean Corpuscular Volume 86.3 fL (78.0-98.0); Mean Platelet Volume 10.9 fL (7.4-10.4); Platelet Count 179 thou/uL (130-400); RBC Distribution Width 12.1 % (11.5-14.5); Red Blood Cell (RBC) Count 4.24 mill/uL (4.20-5.40); White Blood Cell (WBC) Count 11.6 thou/uL (4.8-10.8)
[2020-05-30 03:53] LABS: Hemoglobin A1c 7.9 % (4.0-6.0)
[2020-05-30 04:07] LABS: Anion Gap 13 mmol/L (10-20); BUN (Urea Nitrogen) 9 mg/dL (9.8-20.1); Calc. Creatinine Clearance 93 mL/min (70-130); Calcium 8.6 mg/dL (7.8-10.44); Carbon Dioxide 18 mmol/L (22-29); Chloride 112 mmol/L (98-107); Glucose 272 mg/dL (70-105); Potassium 4.2 mmol/L (3.5-5.1); Sodium 139 mmol/L (136-145)
[2020-05-30] MEDS: Sodium Chloride 0.9% 1,000 ML IV SCH (04:12)
[2020-05-30] MEDS: Vancomycin 1 GM in Premix Bag 1 BAG IVPB SCH ×2 (04:12→16:39)
[2020-05-30] MEDS: HumaLOG 300 UNITS/3 ML VIAL SC PRN ×2 (05:33→19:00)
[2020-05-30] MEDS: Amlodipine 10 MG TAB PO SCH ×2 (10:10→10:17)
[2020-05-30] MEDS: Enoxaparin Sodium 40 MG/0.4 ML SYRINGE SC SCH (10:11)
[2020-05-30] MEDS: Aspirin Chewable 81 MG TAB PO SCH ×2 (10:11→10:17)
[2020-05-30] MEDS: Pantoprazole 40 MG VIAL IVP SCH (10:12)
[2020-05-30] MEDS: Lantus 1000 UNITS/10 ML VIAL SC SCH ×2 (10:24→20:37)
[2020-05-30] MEDS: Atorvastatin Calcium 40 MG TAB PO SCH (20:37)
[2020-05-31] MEDS: Piperacillin/Tazobactam 3.375 GM in Sodium Chloride 0.9% 100 ML IVPB SCH ×4 (01:43→21:29)
[2020-05-31 03:29] LABS: Vancomycin, Trough 20.8 ug/mL
[2020-05-31 03:44] LABS: Anion Gap 16 mmol/L (10-20); BUN (Urea Nitrogen) 10 mg/dL (9.8-20.1); Calc. Creatinine Clearance 74 mL/min (70-130); Calcium 8.9 mg/dL (7.8-10.44); Carbon Dioxide 15 mmol/L (22-29); Chloride 114 mmol/L (98-107); Glucose 134 mg/dL (70-105); Potassium 3.3 mmol/L (3.5-5.1); Sodium 142 mmol/L (136-145)
[2020-05-31] MEDS: Vancomycin 1 GM in Premix Bag 1 BAG IVPB SCH (03:59)
[2020-05-31] MEDS: Sodium Chloride 0.9% 1,000 ML IV SCH (03:59)
[2020-05-31] MEDS: Potassium Chloride 20 MEQ in Premix Bag 1 BAG IVPB SCH ×2 (03:59→05:55)
[2020-05-31] MEDS ORDERED: Sodium Bicarbonate 70 MEQ in Dextrose 5% in Water 1,000 ML IV SCH (07:45)
[2020-05-31] MEDS: Pantoprazole 40 MG VIAL IVP SCH (08:59)
[2020-05-31] MEDS: Enoxaparin Sodium 40 MG/0.4 ML SYRINGE SC SCH (08:59)
[2020-05-31] MEDS: Amlodipine 10 MG TAB PO SCH (09:00)
[2020-05-31] MEDS: Aspirin Chewable 81 MG TAB PO SCH (09:00)
[2020-05-31] MEDS: Lantus 1000 UNITS/10 ML VIAL SC SCH ×2 (09:01→21:30)
[2020-05-31] MEDS ORDERED: Amino Acids 4.25 %/Dextrose 5% 2,000 ML IV SCH (12:30)
[2020-05-31] MEDS: Amino Acids 4.25 %/Dextrose 5% 1,000 ML IV SCH (12:56)
[2020-05-31] MEDS: HumaLOG 300 UNITS/3 ML VIAL SC PRN ×3 (12:56→22:43)
[2020-05-31] MEDS ORDERED: Vancomycin HCl 750 MG in Sodium Chloride 0.9% 250 ML 250 ML IVPB SCH (16:00)
[2020-05-31] MEDS: Atorvastatin Calcium 40 MG TAB PO SCH (21:09)
[2020-06-01] MEDS: Amino Acids 4.25 %/Dextrose 5% 1,000 ML IV SCH ×2 (03:28→14:59)
[2020-06-01] MEDS: Piperacillin/Tazobactam 3.375 GM in Sodium Chloride 0.9% 100 ML IVPB SCH ×4 (03:29→20:26)
[2020-06-01 04:05] LABS: #Basophils 0.1 thou/uL (0.0-0.2); #Eosinphils 0.2 thou/uL (0.0-0.7); #Lymphocytes 2.9 thou/uL (1.20-3.40); #Monocytes 0.7 thou/uL (0.11-0.59); #Neutrophils 7.4 thou/uL (1.40-6.50); %Basophils 0.8 % (0.0-1.0); %Eosinophils 2.1 % (0.0-10.0); %Lymphocytes 25.4 % (21.0-51.0); %Monocytes 6.2 % (0.0-10.0); %Neutrophils 65.5 % (42.0-75.0); Hemoglobin 10.7 g/dL (12.0-16.0); Mean Corpuscular HGB CONC 32.9 g/dL (32.0-36.0); Mean Corpuscular Hemoglobin 28.1 pg (27.0-31.0); Mean Corpuscular Volume 85.3 fL (78.0-98.0); Mean Platelet Volume 11.5 fL (7.4-10.4); Platelet Count 152 thou/uL (130-400); RBC Distribution Width 12.1 % (11.5-14.5); White Blood Cell (WBC) Count 11.3 thou/uL (4.8-10.8)
[2020-06-01 04:17] LABS: Anion Gap 15 mmol/L (10-20); BUN (Urea Nitrogen) 17 mg/dL (9.8-20.1); Calc. Creatinine Clearance 66 mL/min (70-130); Calcium 8.9 mg/dL (7.8-10.44); Carbon Dioxide 15 mmol/L (22-29); Chloride 111 mmol/L (98-107); Glucose 330 mg/dL (70-105); Potassium 3.2 mmol/L (3.5-5.1); Sodium 138 mmol/L (136-145)
[2020-06-01] MEDS: HumaLOG 300 UNITS/3 ML VIAL SC PRN ×4 (04:33→20:32)
[2020-06-01] MEDS: Potassium Chloride 20 MEQ in Premix Bag 1 BAG IVPB SCH ×2 (06:30→09:42)
[2020-06-01] MEDS: Pantoprazole 40 MG VIAL IVP SCH (09:43)
[2020-06-01] MEDS: Lantus 1000 UNITS/10 ML VIAL SC SCH ×2 (09:43→20:27)
[2020-06-01] MEDS: Enoxaparin Sodium 40 MG/0.4 ML SYRINGE SC SCH (09:45)
[2020-06-01] MEDS: Aspirin Chewable 81 MG TAB PO SCH (09:50)
[2020-06-01] MEDS: Amlodipine 10 MG TAB PO SCH (09:50)
[2020-06-01 13:03] VITALS: BMI 30.9
[2020-06-01 16:57] LABS: Potassium 3.8 mmol/L (3.5-5.1)
[2020-06-01] MEDS: Atorvastatin Calcium 40 MG TAB PO SCH (20:16)
[2020-06-02] MEDS: Piperacillin/Tazobactam 3.375 GM in Sodium Chloride 0.9% 100 ML IVPB SCH ×4 (02:59→21:09)
[2020-06-02] MEDS: HumaLOG 300 UNITS/3 ML VIAL SC PRN ×2 (06:03→11:04)
[2020-06-02] MEDS: Pantoprazole 40 MG VIAL IVP SCH (09:50)
[2020-06-02] MEDS: Enoxaparin Sodium 40 MG/0.4 ML SYRINGE SC SCH (09:52)
[2020-06-02] MEDS: Lantus 1000 UNITS/10 ML VIAL SC SCH ×2 (09:53→21:11)
[2020-06-02] MEDS: Amlodipine 10 MG TAB PO SCH (10:22)
[2020-06-02] MEDS: Aspirin Chewable 81 MG TAB PO SCH (10:22)
[2020-06-02] MEDS: Atorvastatin Calcium 40 MG TAB PO SCH (21:10)
[2020-06-02] MEDS: Amino Acids 4.25 %/Dextrose 5% 1,000 ML IV SCH (21:12)
[2020-06-03] MEDS: Piperacillin/Tazobactam 3.375 GM in Sodium Chloride 0.9% 100 ML IVPB SCH ×4 (01:32→20:17)
[2020-06-03] MEDS: Acetaminophen 325 MG TAB PER TUBE PRN ×2 (01:34→20:21)
[2020-06-03] MEDS: HumaLOG 300 UNITS/3 ML VIAL SC PRN ×2 (05:36→15:47)
[2020-06-03] MEDS: Aspirin Chewable 81 MG TAB PO SCH (08:07)
[2020-06-03] MEDS: Amlodipine 10 MG TAB PO SCH (08:07)
[2020-06-03] MEDS: Pantoprazole 40 MG VIAL IVP SCH (08:08)
[2020-06-03] MEDS: Lantus 1000 UNITS/10 ML VIAL SC SCH ×2 (08:09→20:20)
[2020-06-03] MEDS: Enoxaparin Sodium 40 MG/0.4 ML SYRINGE SC SCH (08:09)
[2020-06-03] MEDS ORDERED: Amino Acids 4.25 %/Dextrose 5% 2,000 ML IV SCH (13:30)
[2020-06-03] MEDS: Nicotine 14 MG PATCH TD SCH (18:12)
[2020-06-03] MEDS: Atorvastatin Calcium 40 MG TAB PO SCH (20:19)
[2020-06-04] MEDS: Piperacillin/Tazobactam 3.375 GM in Sodium Chloride 0.9% 100 ML IVPB SCH ×3 (02:49→14:28)
[2020-06-04] MEDS: Enoxaparin Sodium 40 MG/0.4 ML SYRINGE SC SCH (10:08)
[2020-06-04] MEDS: Pantoprazole 40 MG VIAL IVP SCH (10:08)
[2020-06-04] MEDS: Amlodipine 10 MG TAB PO SCH (10:11)
[2020-06-04] MEDS: Lantus 1000 UNITS/10 ML VIAL SC SCH ×2 (10:11→20:33)
[2020-06-04] MEDS: Aspirin Chewable 81 MG TAB PO SCH (10:12)
[2020-06-04 13:53] LABS: Bilirubin Negative (Negative); Blood, Urine 1+ (Negative); Clarity Turbid (Clear); Glucose, Urine (Dipstick) 200 mg/dL (Negative); Ketone, Urine Negative (Negative); Leukocyte 250 Leu/uL (Negative); Nitrite Negative (Negative); Protein, Urine (Dipstick) 70 mg/dL (Neg-Trace); Specific Gravity, Urine 1.029 (1.002-1.036); Urobilinogen Normal mg/dL (Less than 2); WBC/HPF 21-50 HPF (0-3)
[2020-06-04 13:56] LABS: Bacteria/HPF Rare-Few HPF (None Seen)
[2020-06-04 13:57] LABS: Yeast-Budding 1+ HPF (None Seen)
[2020-06-04 13:58] LABS: Urine Culture Reflex No No
[2020-06-04] MEDS: HumaLOG 300 UNITS/3 ML VIAL SC PRN ×2 (16:25→20:39)
[2020-06-04] MEDS: Nicotine 14 MG PATCH TD SCH (18:31)
[2020-06-04] MEDS: Cefepime 2 GM in Sodium Chloride 0.9% 100 ML IVPB SCH (20:31)
[2020-06-04] MEDS: Atorvastatin Calcium 40 MG TAB PO SCH (20:33)
[2020-06-05] MEDS: HumaLOG 300 UNITS/3 ML VIAL SC PRN ×3 (06:08→17:00)
[2020-06-05 06:42] LABS: Anion Gap 15 mmol/L (10-20); BUN (Urea Nitrogen) 26 mg/dL (9.8-20.1); Calc. Creatinine Clearance 72 mL/min (70-130); Calcium 9.8 mg/dL (7.8-10.44); Carbon Dioxide 13 mmol/L (22-29); Chloride 117 mmol/L (98-107); Glucose 265 mg/dL (70-105); Sodium 142 mmol/L (136-145)
[2020-06-05 06:45] LABS: #Basophils 0.1 thou/uL (0.0-0.2); #Eosinphils 0.2 thou/uL (0.0-0.7); #Lymphocytes 3.1 thou/uL (1.20-3.40); #Monocytes 0.8 thou/uL (0.11-0.59); #Neutrophils 10.2 thou/uL (1.40-6.50); %Eosinophils 1.6 % (0.0-10.0); %Lymphocytes 21.5 % (21.0-51.0); %Monocytes 5.3 % (0.0-10.0); %Neutrophils 70.6 % (42.0-75.0); Hemoglobin 11.3 g/dL (12.0-16.0); Lymphocytes 19 % (21-51); MDiff Complete? YES; Mean Corpuscular HGB CONC 33.4 g/dL (32.0-36.0); Mean Corpuscular Hemoglobin 27.8 pg (27.0-31.0); Mean Corpuscular Volume 83.2 fL (78.0-98.0); Mean Platelet Volume 13.5 fL (7.4-10.4); Monocytes 6 % (0-10); Neutrophil 74 % (42-75); Platelet Count 138 thou/uL (130-400); Platelet Morphology Comment Appears Adequate; Potassium 2.7 mmol/L (3.5-5.1); Reactive Lymphocytes 1 % (0-10); Red Blood Cell (RBC) Count 4.05 mill/uL (4.20-5.40); White Blood Cell (WBC) Count 14.4 thou/uL (4.8-10.8)
[2020-06-05] MEDS: Potassium Chloride 20 MEQ in Premix Bag 1 BAG IVPB SCH ×2 (08:10→10:15)
[2020-06-05] MEDS: Pantoprazole 40 MG VIAL IVP SCH (08:20)
[2020-06-05] MEDS: Amlodipine 10 MG TAB PO SCH (08:21)
[2020-06-05] MEDS: Aspirin Chewable 81 MG TAB PO SCH (08:21)
[2020-06-05] MEDS: Lantus 1000 UNITS/10 ML VIAL SC SCH ×2 (08:22→20:45)
[2020-06-05] MEDS ORDERED: Lantus 1000 UNITS/10 ML VIAL SC SCH (09:00)
[2020-06-05] MEDS: Cefepime 2 GM in Sodium Chloride 0.9% 100 ML IVPB SCH ×2 (10:00→20:44)
[2020-06-05] MEDS: Enoxaparin Sodium 40 MG/0.4 ML SYRINGE SC SCH (10:00)
[2020-06-05 14:23] LABS: Base Excess (BEa) -8.6 mEq/L (-2.0 to +3.0); Calcium, Ionized (arterial) 1.33 mmol/L (1.12-1.30); Carboxyhemoglobin (COHb) 0.1 gm% (0.0-3.0); Hemoglobin (Hb) 11.4 g/dL (12.0-16.0); pH, Arterial 7.42 (7.35-7.45)
[2020-06-05 14:24] LABS: Puncture Site RRA
[2020-06-05 14:36] LABS: Anion Gap 12 mmol/L (10-20); BUN (Urea Nitrogen) 25 mg/dL (9.8-20.1); Calc. Creatinine Clearance 65 mL/min (70-130); Calcium 9.2 mg/dL (7.8-10.44); Carbon Dioxide 12 mmol/L (22-29); Chloride 121 mmol/L (98-107); Glucose 394 mg/dL (70-105); Potassium 3.4 mmol/L (3.5-5.1); Sodium 142 mmol/L (136-145)
[2020-06-05] MEDS: oxyCODONE 5 MG TAB PER TUBE SCH ×2 (15:59→20:42)
[2020-06-05] MEDS: Nicotine 14 MG PATCH TD SCH (18:38)
[2020-06-05 20:31] LABS: Bilirubin Negative (Negative); Blood, Urine 2+ (Negative); Clarity Turbid (Clear); Glucose, Urine (Dipstick) Normal (Negative); Ketone, Urine Negative (Negative); Leukocyte 500 Leu/uL (Negative); Nitrite Negative (Negative); Protein, Urine (Dipstick) 100 mg/dL (Neg-Trace); Specific Gravity, Urine 1.024 (1.002-1.036); Squamous Epithelial 0-3 HPF (0-3); Urobilinogen Normal mg/dL (Less than 2); WBC/HPF 21-50 HPF (0-3); Yeast-Budding 4+ HPF (None Seen)
[2020-06-05 20:38] LABS: Bacteria/HPF Rare-Few HPF (None Seen)
[2020-06-05 20:40] LABS: Urine Culture Reflex Yes Yes
[2020-06-05] MEDS: Atorvastatin Calcium 40 MG TAB PO SCH (20:42)
[2020-06-06] MEDS: HumaLOG 300 UNITS/3 ML VIAL SC PRN ×4 (01:16→18:04)
[2020-06-06] MEDS: oxyCODONE 5 MG TAB PER TUBE SCH ×4 (03:04→20:30)
[2020-06-06 05:53] LABS: #Basophils 0.1 thou/uL (0.0-0.2); #Eosinphils 0.3 thou/uL (0.0-0.7); #Lymphocytes 3.3 thou/uL (1.20-3.40); #Monocytes 0.7 thou/uL (0.11-0.59); #Neutrophils 10.5 thou/uL (1.40-6.50); %Basophils 0.7 % (0.0-1.0); %Eosinophils 2.3 % (0.0-10.0); %Neutrophils 70.1 % (42.0-75.0); Hemoglobin 10.8 g/dL (12.0-16.0); Mean Corpuscular HGB CONC 32.1 g/dL (32.0-36.0); Mean Corpuscular Hemoglobin 26.9 pg (27.0-31.0); Mean Corpuscular Volume 83.7 fL (78.0-98.0); Platelet Count 134 thou/uL (130-400); RBC Distribution Width 13.2 % (11.5-14.5); White Blood Cell (WBC) Count 14.9 thou/uL (4.8-10.8)
[2020-06-06 06:16] LABS: Anion Gap 13 mmol/L (10-20); BUN (Urea Nitrogen) 25 mg/dL (9.8-20.1); Calc. Creatinine Clearance 75 mL/min (70-130); Calcium 9.7 mg/dL (7.8-10.44); Carbon Dioxide 15 mmol/L (22-29); Chloride 118 mmol/L (98-107); Glucose 302 mg/dL (70-105); Potassium 3.2 mmol/L (3.5-5.1); Sodium 143 mmol/L (136-145)
[2020-06-06] MEDS ORDERED: Potassium Chloride 20 MEQ TAB PO SCH (06:30)
[2020-06-06] MEDS: Cefepime 2 GM in Sodium Chloride 0.9% 100 ML IVPB SCH ×2 (08:32→20:31)
[2020-06-06] MEDS: Amlodipine 10 MG TAB PO SCH (08:34)
[2020-06-06] MEDS: Escitalopram Oxalate 10 mg Tablet PER TUBE SCH (08:34)
[2020-06-06] MEDS: Pantoprazole 40 MG VIAL IVP SCH (08:34)
[2020-06-06] MEDS: Aspirin Chewable 81 MG TAB PO SCH (08:34)
[2020-06-06] MEDS: Enoxaparin Sodium 40 MG/0.4 ML SYRINGE SC SCH (08:35)
[2020-06-06] MEDS: Lantus 1000 UNITS/10 ML VIAL SC SCH ×2 (08:35→20:33)
[2020-06-06] MEDS ORDERED: Sodium Bicarbonate Tab 325 MG TAB PER TUBE PRN (09:31)
[2020-06-06] MEDS ORDERED: Pancrelipase DR 12,000 1 CAP PER TUBE PRN (09:31)
[2020-06-06] MEDS: Nicotine 14 MG PATCH TD SCH (18:03)
[2020-06-06] MEDS: Atorvastatin Calcium 40 MG TAB PO SCH (20:30)
[2020-06-07] MEDS: HumaLOG 300 UNITS/3 ML VIAL SC PRN ×4 (01:31→17:20)
[2020-06-07] MEDS: oxyCODONE 5 MG TAB PER TUBE SCH ×4 (02:43→20:37)
[2020-06-07] MEDS ORDERED: hydrALAZINE 20 MG/ML VIAL SLOW IVP PRN (04:32)
[2020-06-07] MEDS: Escitalopram Oxalate 10 mg Tablet PER TUBE SCH (08:58)
[2020-06-07] MEDS: Enoxaparin Sodium 40 MG/0.4 ML SYRINGE SC SCH (08:58)
[2020-06-07] MEDS: Amlodipine 10 MG TAB PO SCH (08:58)
[2020-06-07] MEDS: Aspirin Chewable 81 MG TAB PO SCH (08:58)
[2020-06-07] MEDS: Lantus 1000 UNITS/10 ML VIAL SC SCH ×3 (08:59→20:36)
[2020-06-07] MEDS: Pantoprazole 40 MG VIAL IVP SCH (09:01)
[2020-06-07] MEDS ORDERED: Lantus 1000 UNITS/10 ML VIAL SC SCH (09:45)
[2020-06-07] MEDS: Cefepime 2 GM in Sodium Chloride 0.9% 100 ML IVPB SCH ×2 (10:00→20:35)
[2020-06-07 11:16] LABS: Anion Gap 14 mmol/L (10-20); BUN (Urea Nitrogen) 23 mg/dL (9.8-20.1); Calc. Creatinine Clearance 77 mL/min (70-130); Carbon Dioxide 20 mmol/L (22-29); Chloride 114 mmol/L (98-107); Potassium 3.5 mmol/L (3.5-5.1); Sodium 144 mmol/L (136-145)
[2020-06-07 11:17] LABS: Calcium 9.7 mg/dL (7.8-10.44); Glucose 263 mg/dL (70-105)
[2020-06-07] MEDS ORDERED: Potassium Bicarbonate/Cit Ac 20 MEQ TAB PER TUBE SCH (12:30)
[2020-06-07] MEDS ORDERED: Potassium Chloride 40 MEQ in Sodium Chloride 0.9% 250 ML 250 ML IVPB SCH (13:00)
[2020-06-07] MEDS: Nicotine 14 MG PATCH TD SCH (17:23)
[2020-06-07] MEDS: ALPRAZolam 0.25 MG TAB PO SCH (20:35)
[2020-06-07] MEDS: Atorvastatin Calcium 40 MG TAB PO SCH (20:35)
[2020-06-08] MEDS: oxyCODONE 5 MG TAB PER TUBE SCH ×4 (03:01→21:24)
[2020-06-08] MEDS: Acetaminophen 325 MG TAB PER TUBE PRN (05:42)
[2020-06-08] MEDS: HumaLOG 300 UNITS/3 ML VIAL SC PRN ×3 (05:43→17:17)
[2020-06-08] MEDS: Cefepime 2 GM in Sodium Chloride 0.9% 100 ML IVPB SCH (08:57)
[2020-06-08] MEDS: Amlodipine 10 MG TAB PO SCH (08:57)
[2020-06-08] MEDS: Aspirin Chewable 81 MG TAB PO SCH (08:57)
[2020-06-08] MEDS: Escitalopram Oxalate 10 mg Tablet PER TUBE SCH (08:57)
[2020-06-08] MEDS: ALPRAZolam 0.25 MG TAB PO SCH ×2 (08:57→21:25)
[2020-06-08] MEDS: Enoxaparin Sodium 40 MG/0.4 ML SYRINGE SC SCH (08:58)
[2020-06-08] MEDS: Lantus 1000 UNITS/10 ML VIAL SC SCH ×2 (08:58→21:26)
[2020-06-08] MEDS: Pantoprazole 40 MG VIAL IVP SCH (08:59)
[2020-06-08] MEDS: Nicotine 14 MG PATCH TD SCH (17:17)
[2020-06-08] MEDS: Atorvastatin Calcium 40 MG TAB PO SCH (21:25)
[2020-06-09] MEDS: oxyCODONE 5 MG TAB PER TUBE SCH ×4 (02:25→20:26)
[2020-06-09] MEDS ORDERED: diphenhydrAMINE 50 MG/ML VIAL IVP PRN (03:00)
[2020-06-09 07:03] LABS: #Basophils 0.2 thou/uL (0.0-0.2); #Eosinphils 0.4 thou/uL (0.0-0.7); #Lymphocytes 4.1 thou/uL (1.20-3.40); #Monocytes 0.8 thou/uL (0.11-0.59); #Neutrophils 9.2 thou/uL (1.40-6.50); %Basophils 1.1 % (0.0-1.0); %Eosinophils 2.5 % (0.0-10.0); %Lymphocytes 28.2 % (21.0-51.0); %Monocytes 5.2 % (0.0-10.0); %Neutrophils 63.1 % (42.0-75.0); Mean Corpuscular HGB CONC 32.2 g/dL (32.0-36.0); Mean Corpuscular Hemoglobin 27.2 pg (27.0-31.0); Mean Corpuscular Volume 84.4 fL (78.0-98.0); Mean Platelet Volume 15.1 fL (7.4-10.4); Platelet Count 141 thou/uL (130-400); RBC Distribution Width 13.3 % (11.5-14.5); White Blood Cell (WBC) Count 14.5 thou/uL (4.8-10.8)
[2020-06-09 07:21] LABS: Anion Gap 14 mmol/L (10-20); BUN (Urea Nitrogen) 23 mg/dL (9.8-20.1); Calc. Creatinine Clearance 83 mL/min (70-130); Calcium 9.7 mg/dL (7.8-10.44); Carbon Dioxide 23 mmol/L (22-29); Chloride 112 mmol/L (98-107); Glucose 121 mg/dL (70-105); Potassium 3.5 mmol/L (3.5-5.1); Sodium 145 mmol/L (136-145)
[2020-06-09] MEDS ORDERED: Potassium Bicarbonate/Cit Ac 20 MEQ TAB PER TUBE SCH (08:15)
[2020-06-09] MEDS: Pantoprazole 40 MG VIAL IVP SCH (08:33)
[2020-06-09] MEDS: Lantus 1000 UNITS/10 ML VIAL SC SCH ×2 (08:35→20:28)
[2020-06-09] MEDS: ALPRAZolam 0.25 MG TAB PO SCH ×2 (09:00→20:26)
[2020-06-09] MEDS ORDERED: Sodium Chloride 0.9% 20 ML ONE (09:58)
[2020-06-09] MEDS ORDERED: PROPOFOL 200 MG/20 ML VIAL ONE (10:55)
[2020-06-09] MEDS ORDERED: Lidocaine 1% PF 5 ML VIAL ONE (10:55)
[2020-06-09] MEDS: Aspirin Chewable 81 MG TAB PO SCH (13:23)
[2020-06-09] MEDS: Amlodipine 10 MG TAB PO SCH (13:23)
[2020-06-09] MEDS: Escitalopram Oxalate 10 mg Tablet PER TUBE SCH (13:24)
[2020-06-09] MEDS: Nicotine 14 MG PATCH TD SCH (17:45)
[2020-06-09] MEDS: HumaLOG 300 UNITS/3 ML VIAL SC PRN (18:33)
[2020-06-09] MEDS: Atorvastatin Calcium 40 MG TAB PO SCH (20:27)
[2020-06-10] MEDS: oxyCODONE 5 MG TAB PER TUBE SCH ×4 (03:06→20:11)
[2020-06-10] MEDS: HumaLOG 300 UNITS/3 ML VIAL SC PRN ×3 (05:44→16:47)
[2020-06-10] MEDS: ALPRAZolam 0.25 MG TAB PO SCH ×2 (08:51→20:11)
[2020-06-10] MEDS: Amlodipine 10 MG TAB PO SCH (08:52)
[2020-06-10] MEDS: Escitalopram Oxalate 10 mg Tablet PER TUBE SCH (08:52)
[2020-06-10] MEDS: Aspirin Chewable 81 MG TAB PO SCH (08:52)
[2020-06-10] MEDS: Enoxaparin Sodium 40 MG/0.4 ML SYRINGE SC SCH (08:57)
[2020-06-10] MEDS: Lantus 1000 UNITS/10 ML VIAL SC SCH ×2 (08:58→20:12)
[2020-06-10] MEDS: Pantoprazole 40 MG VIAL IVP SCH (08:59)
[2020-06-10] MEDS: Nicotine 14 MG PATCH TD SCH (17:44)
[2020-06-10] MEDS: Atorvastatin Calcium 40 MG TAB PO SCH (20:11)
[2020-06-11] MEDS: oxyCODONE 5 MG TAB PER TUBE SCH ×4 (03:30→20:09)
[2020-06-11] MEDS: HumaLOG 300 UNITS/3 ML VIAL SC PRN ×3 (06:16→17:14)
[2020-06-11] MEDS: Escitalopram Oxalate 10 mg Tablet PER TUBE SCH (07:42)
[2020-06-11] MEDS: Amlodipine 10 MG TAB PO SCH (07:42)
[2020-06-11] MEDS: Aspirin Chewable 81 MG TAB PO SCH (07:42)
[2020-06-11] MEDS: ALPRAZolam 0.25 MG TAB PO SCH ×2 (07:43→20:09)
[2020-06-11] MEDS: Lantus 1000 UNITS/10 ML VIAL SC SCH ×2 (07:44→20:10)
[2020-06-11] MEDS: Enoxaparin Sodium 40 MG/0.4 ML SYRINGE SC SCH (07:45)
[2020-06-11] MEDS: Pantoprazole 40 MG VIAL IVP SCH (07:58)
[2020-06-11 08:50] LABS: Anion Gap 13 mmol/L (10-20); BUN (Urea Nitrogen) 23 mg/dL (9.8-20.1); Calc. Creatinine Clearance 75 mL/min (70-130); Calcium 9.9 mg/dL (7.8-10.44); Carbon Dioxide 26 mmol/L (22-29); Chloride 108 mmol/L (98-107); Glucose 277 mg/dL (70-105); Potassium 3.9 mmol/L (3.5-5.1); Sodium 143 mmol/L (136-145)
[2020-06-11 08:55] LABS: #Basophils 0.1 thou/uL (0.0-0.2); #Eosinphils 0.3 thou/uL (0.0-0.7); #Lymphocytes 3.5 thou/uL (1.20-3.40); %Basophils 0.9 % (0.0-1.0); %Eosinophils 1.8 % (0.0-10.0); %Lymphocytes 23.4 % (21.0-51.0); %Monocytes 6.5 % (0.0-10.0); %Neutrophils 67.4 % (42.0-75.0); Hemoglobin 11.4 g/dL (12.0-16.0); Large Platelets SLIGHT; MDiff Complete? YES; Mean Corpuscular HGB CONC 33.5 g/dL (32.0-36.0); Mean Corpuscular Hemoglobin 28.5 pg (27.0-31.0); Mean Corpuscular Volume 85.1 fL (78.0-98.0); Mean Platelet Volume 15.2 fL (7.4-10.4); Platelet Count 122 thou/uL (130-400); Platelet Morphology Comment Appears Decreased; Polychromasia SLIGHT = 2-3 cells (100X) (0-2/hpf); RBC Distribution Width 12.8 % (11.5-14.5); Red Blood Cell (RBC) Count 4.02 mill/uL (4.20-5.40); White Blood Cell (WBC) Count 14.8 thou/uL (4.8-10.8)
[2020-06-11] MEDS: Nicotine 14 MG PATCH TD SCH (17:12)
[2020-06-11] MEDS: Atorvastatin Calcium 40 MG TAB PO SCH (20:09)
[2020-06-12] MEDS: oxyCODONE 5 MG TAB PER TUBE SCH ×2 (03:18→09:09)
[2020-06-12] MEDS: HumaLOG 300 UNITS/3 ML VIAL SC PRN ×2 (05:18→12:51)
[2020-06-12] MEDS: Enoxaparin Sodium 40 MG/0.4 ML SYRINGE SC SCH (08:58)
[2020-06-12] MEDS: Pantoprazole 40 MG VIAL IVP SCH (08:59)
[2020-06-12] MEDS: Amlodipine 10 MG TAB PO SCH (08:59)
[2020-06-12] MEDS: Escitalopram Oxalate 10 mg Tablet PER TUBE SCH (08:59)
[2020-06-12] MEDS: Aspirin Chewable 81 MG TAB PO SCH (08:59)
[2020-06-12] MEDS: Lantus 1000 UNITS/10 ML VIAL SC SCH (09:04)
[2020-06-12] MEDS: ALPRAZolam 0.25 MG TAB PO SCH (09:09)
[2020-06-12 09:17] LABS: #Basophils 0.1 thou/uL (0.0-0.2); #Eosinphils 0.2 thou/uL (0.0-0.7); #Lymphocytes 2.6 thou/uL (1.20-3.40); #Monocytes 0.9 thou/uL (0.11-0.59); #Neutrophils 9.5 thou/uL (1.40-6.50); %Basophils 0.6 % (0.0-1.0); %Eosinophils 1.7 % (0.0-10.0); %Lymphocytes 19.7 % (21.0-51.0); Mean Corpuscular Volume 85.1 fL (78.0-98.0); Mean Platelet Volume 15.3 fL (7.4-10.4); Platelet Count 117 thou/uL (130-400); RBC Distribution Width 12.8 % (11.5-14.5); Red Blood Cell (RBC) Count 3.92 mill/uL (4.20-5.40); White Blood Cell (WBC) Count 13.3 thou/uL (4.8-10.8)
[2020-06-12 11:57] VITALS: BP 119/62; TEMP 97.8
== END 2020-06-12 13:45 | disposition swing bed (61) | DRG 901 ==
LOC: ERS 12:46 → CCU 15:50 → IMCU/EMU 05-29 18:48 → T4-B 06-02 17:06
PROVIDERS: ADMIT Internal Medicine; ATTEND Internal Medicine
PROC: 5A1945Z Respiratory Ventilation, 24-96 Consecutive Hours (ICD-10-PCS; principal; 2020-05-26)
PROC: 0BH17EZ Insertion of Endotracheal Airway into Trachea, Via Natural or Artificial Opening (ICD-10-PCS; 2020-05-26)
PROC: 0JB90ZZ Excision of Buttock Subcutaneous Tissue and Fascia, Open Approach (ICD-10-PCS; 2020-05-28)
PROC: 8E0ZXY6 Isolation (ICD-10-PCS; 2020-05-28)
PROC: 0JB90ZZ Excision of Buttock Subcutaneous Tissue and Fascia, Open Approach (ICD-10-PCS; 2020-05-28)
PROC: 0DH67UZ Insertion of Feeding Device into Stomach, Via Natural or Artificial Opening (ICD-10-PCS; 2020-06-02)
PROC: 0DH63UZ Insertion of Feeding Device into Stomach, Percutaneous Approach (ICD-10-PCS; 2020-06-09)
DX: T42.4X1A Poisoning by benzodiazepines, accidental (unintentional), initial encounter (principal); G92 Toxic encephalopathy; J96.01 Acute respiratory failure with hypoxia; I21.A1 Myocardial infarction type 2; G93.1 Anoxic brain damage, not elsewhere classified; F11.20 Opioid dependence, uncomplicated; L02.31 Cutaneous abscess of buttock; L03.317 Cellulitis of buttock; K86.1 Other chronic pancreatitis; E87.3 Alkalosis; K61.1 Rectal abscess; E87.2 Acidosis; R47.01 Aphasia; N39.0 Urinary tract infection, site not specified; E44.0 Moderate protein-calorie malnutrition; F13.20 Sedative, hypnotic or anxiolytic dependence, uncomplicated; Z20.822 Contact with and (suspected) exposure to COVID-19; T40.2X1A Poisoning by other opioids, accidental (unintentional), initial encounter; F17.210 Nicotine dependence, cigarettes, uncomplicated; E87.5 Hyperkalemia; E83.42 Hypomagnesemia; E11.69 Type 2 diabetes mellitus with other specified complication; K21.9 Gastro-esophageal reflux disease without esophagitis; I25.10 Atherosclerotic heart disease of native coronary artery without angina pectoris; G89.29 Other chronic pain; F32.9 Major depressive disorder, single episode, unspecified; K76.0 Fatty (change of) liver, not elsewhere classified; N18.30 Chronic kidney disease, stage 3 unspecified; E11.22 Type 2 diabetes mellitus with diabetic chronic kidney disease; K86.89 Other specified diseases of pancreas; D72.829 Elevated white blood cell count, unspecified; D63.1 Anemia in chronic kidney disease; F41.9 Anxiety disorder, unspecified; I12.9 Hypertensive chronic kidney disease with stage 1 through stage 4 chronic kidney disease, or unspecified chronic kidney disease; E11.40 Type 2 diabetes mellitus with diabetic neuropathy, unspecified; R13.10 Dysphagia, unspecified; L30.8 Other specified dermatitis; E87.6 Hypokalemia; Z78.1 Physical restraint status; Z79.4 Long term (current) use of insulin; Z90.710 Acquired absence of both cervix and uterus; Z79.82 Long term (current) use of aspirin; Z68.30 Body mass index [BMI] 30.0-30.9, adult; Z98.51 Tubal ligation status; Z88.8 Allergy status to other drugs, medicaments and biological substances; Z79.899 Other long term (current) drug therapy; Z87.19 Personal history of other diseases of the digestive system; Z95.5 Presence of coronary angioplasty implant and graft; Z95.828 Presence of other vascular implants and grafts
CPT/HCPCS: 0240U; 31500; 36415; 36416; 36600; 51702; 70450; 70496; 70498; 70551; 71045; 72192; 74018; 76705; 80048; 80053; 80202; 81001; 81003; 81015; 82140; 82550; 82553; 82805; 83036; 83605; 83690; 83735; 83880; 84100; 84443; 84484; 85025; 85610; 85730; 86140; 87040; 87086; 87324; 87449; 93005; 93306; 94002; 94003; 94640; 95712; 95819; 95957; 96365; 96366; 96374; 96375; 99292; C9113; J0360; J0690; J0692; J0696; J1650; J1815; J1953; J2060; J2270; J2543; J2704; J3010; J3370; J3475; J3480; J3490; J7050; J7070; J7620; Q9967; S0028

== ENCOUNTER 2021-07-25 06:58 | Emergency (ER) | payer MEDICARE, OTHER ==
[2021-07-25] MEDS ORDERED: HYDROcodone/Acetaminophen 5/325 mg Tablet ONE (08:44)
== END 2021-07-25 08:48 | disposition home or self-care (01) ==
LOC: ERS 06:58
DX: L03.116 Cellulitis of left lower limb (principal); I10 Essential (primary) hypertension; E11.9 Type 2 diabetes mellitus without complications; F17.210 Nicotine dependence, cigarettes, uncomplicated; Z87.19 Personal history of other diseases of the digestive system
CPT/HCPCS: 99283

== ENCOUNTER 2021-07-26 17:07 | Emergency (ER) | payer MEDICARE, OTHER | END 2021-07-26 17:28 | disposition home or self-care (01) | LOC: ERS 17:07 | DX: L03.116 Cellulitis of left lower limb (principal); I10 Essential (primary) hypertension; E11.9 Type 2 diabetes mellitus without complications; F17.210 Nicotine dependence, cigarettes, uncomplicated; Z79.4 Long term (current) use of insulin | CPT/HCPCS: 99283 ==

== ENCOUNTER 2023-10-31 11:46 | Inpatient (IN) | payer OTHER ==
[~2023-10-31 11:46] MED LIST changes: -Iopamidol-370 76% 500 ML 1 ML ONE; +Iopamidol-370 76% 500 ML MDV (1 ML CHARGE) ONE
[2023-10-31 12:17] LABS: #Basophils Less than 0.03 10x3/uL (0.0-0.2); %Basophils 0.1 % (0.0-1.0); %Eosinophils 0.2 % (0.0-10.0); %Lymphocytes 18.6 % (21.0-51.0); %Monocytes 3.1 % (0.0-10.0); %Neutrophils 77.7 % (42.0-75.0); Hematocrit 22.3 % (36.0-47.0); Hemoglobin 7.3 g/dL (12.0-16.0); Mean Corpuscular HGB CONC 32.7 g/dL (32.0-36.0); Mean Corpuscular Hemoglobin 28.7 pg (27.0-31.0); Mean Corpuscular Volume 87.8 fL (78.0-98.0); Mean Platelet Volume 10.8 fL (7.4-10.4); Platelet Count 350 10x3/uL (130-400); RBC Distribution Width 14.7 % (11.5-14.5); Red Blood Cell (RBC) Count 2.54 mill/uL (4.20-5.40)
[2023-10-31] MEDS ORDERED: Morphine 2 MG/ML VIAL ONE (12:29)
[2023-10-31 12:41] LABS: ALT (SGPT) 17 U/L (8-55); AST (SGOT) 11 U/L (5-34); Albumin 1.6 g/dL (3.5-5.0); Alkaline Phosphatase 223 U/L (40-110); Anion Gap 10 mmol/L (10-20); BUN (Urea Nitrogen) 7 mg/dL (9.8-20.1); Bilirubin, Total 0.2 mg/dL (0.2-1.2); Calc. Creatinine Clearance 0 mL/min (70-130); Calcium 7.7 mg/dL (7.8-10.44); Carbon Dioxide 17 mmol/L (22-29); Chloride 106 mmol/L (98-107); Estimated GFR 91; Globulin 3.9 g/dL (2.4-3.5); Glucose 286 mg/dL (70-105); Lipase Less than 4 U/L (8-78); Potassium 4.1 mmol/L (3.5-5.1); Protein, Total 5.5 g/dL (6.0-8.3); Sodium 129 mmol/L (136-145)
[2023-10-31 12:58] LABS: Bilirubin Negative (Negative); Blood, Urine Trace (Negative); CAUTI Indications for Culture Pelvic or flank pain; Clarity Extra Turbid (Clear); Glucose, Urine (Dipstick) Normal (Negative); Ketone, Urine Negative (Negative); Leukocyte 500 Leu/uL (Negative); Nitrite 1+ (Negative); Protein, Urine (Dipstick) 30 mg/dL (Neg-Trace); Squamous Epithelial None Seen HPF (0-3); Urobilinogen Normal mg/dL (Less than 2)
[2023-10-31 13:07] LABS: Bacteria/HPF 1+ HPF (None Seen)
[2023-10-31 13:09] LABS: WBC/HPF Greater than 50 HPF (0-3)
[2023-10-31 13:10] LABS: Yeast-Budding 3+ HPF (None Seen)
[2023-10-31 13:11] LABS: Specific Gravity, Urine 1.052 (1.002-1.036)
[2023-10-31 13:12] LABS: Urine Culture Reflex Yes Yes
[2023-10-31] MEDS ORDERED: Cefepime 2 GM VIAL ONE (15:42)
[2023-10-31] MEDS ORDERED: Sodium Chloride 0.9% 100 ML ONE (15:43)
[2023-10-31] MEDS ORDERED: Vancomycin 1 GM/200 ML (FROZEN) BAG ONE (16:45)
[2023-10-31] MEDS ORDERED: Dextrose 5% in Water 1,000 ML IV PRN (18:54)
[2023-10-31] MEDS ORDERED: Insulin Regular, Human 100 UNIT/ML 10 ML VIAL SC PRN (18:54)
[2023-10-31] MEDS ORDERED: Dextrose 50% Abboject 50 ML SYRINGE SLOW IVP PRN (18:54)
[2023-10-31 18:57] LABS: Lactic Acid 2.99 mmol/L (0.5-2.2)
[2023-10-31] MEDS: Pantoprazole DR 40 MG TAB PO SCH (20:16)
[2023-10-31] MEDS: Lactated Ringer's 1,000 ML IV SCH (20:16)
[2023-10-31] MEDS ORDERED: Vancomycin 1 GM in Sodium Chloride 0.9% 250 ML 250 ML IVPB SCH (21:00)
[2023-10-31] MEDS: Morphine 2 MG/ML VIAL SLOW IVP PRN (21:51)
[2023-10-31] MEDS: Vancomycin HCl 500 MG in Sodium Chloride 0.9% 100 ML IVPB SCH (21:55)
[2023-10-31 22:42] LABS: Anion Gap 9 mmol/L (10-20); BUN (Urea Nitrogen) 7 mg/dL (9.8-20.1); Calc. Creatinine Clearance 60 mL/min (70-130); Calcium 6.9 mg/dL (7.8-10.44); Carbon Dioxide 16 mmol/L (22-29); Chloride 107 mmol/L (98-107); Estimated GFR 106; Glucose 231 mg/dL (70-105); Potassium 4.1 mmol/L (3.5-5.1); Sodium 128 mmol/L (136-145)
[2023-11-01] MEDS: Cefepime 1 GM in Sodium Chloride 0.9% 100 ML IVPB SCH (03:00)
[2023-11-01] MEDS ORDERED: Albuterol 200 PUFF (6.7GM INHALER) INH PRN (04:10)
[2023-11-01 05:24] LABS: #Basophils 0.03 10x3/uL (0.0-0.2); %Basophils 0.2 % (0.0-1.0); %Eosinophils 0.4 % (0.0-10.0); %Monocytes 5.6 % (0.0-10.0); %Neutrophils 77.3 % (42.0-75.0); Hematocrit 21.2 % (36.0-47.0); Hemoglobin 6.8 g/dL (12.0-16.0); Mean Corpuscular HGB CONC 32.1 g/dL (32.0-36.0); Mean Corpuscular Hemoglobin 27.9 pg (27.0-31.0); Mean Corpuscular Volume 86.9 fL (78.0-98.0); Mean Platelet Volume 11.2 fL (7.4-10.4); Platelet Count 310 10x3/uL (130-400); Red Blood Cell (RBC) Count 2.44 mill/uL (4.20-5.40)
[2023-11-01 05:38] LABS: Vancomycin, Random 22.1 ug/mL (See Comment)
[2023-11-01 05:40] LABS: ALT (SGPT) 16 U/L (8-55); AST (SGOT) 8 U/L (5-34); Albumin 1.3 g/dL (3.5-5.0); Alkaline Phosphatase 142 U/L (40-110); Anion Gap 10 mmol/L (10-20); BUN (Urea Nitrogen) 6 mg/dL (9.8-20.1); Bilirubin, Total 0.2 mg/dL (0.2-1.2); Calc. Creatinine Clearance 66 mL/min (70-130); Carbon Dioxide 17 mmol/L (22-29); Chloride 108 mmol/L (98-107); Estimated GFR 108; Glucose 117 mg/dL (70-105); Protein, Total 4.3 g/dL (6.0-8.3); Sodium 131 mmol/L (136-145)
[2023-11-01] MEDS: Insulin Lispro 100 UNIT/ML 10 ML VIAL SC SCH (08:26)
[2023-11-01] MEDS: Thiamine 100 MG TAB PO SCH (08:27)
[2023-11-01] MEDS: Amlodipine 10 MG TAB PO SCH (08:27)
[2023-11-01] MEDS: Pantoprazole DR 40 MG TAB PO SCH (08:28)
[2023-11-01] MEDS: Potassium Chloride 20 MEQ TAB PO SCH (08:28)
[2023-11-01] MEDS: Escitalopram Oxalate 20 mg Tablet PO SCH (08:28)
[2023-11-01] MEDS: Aripiprazole 10 MG TAB PO SCH (08:28)
[2023-11-01] MEDS: Clotrimazole 1 % Cream 30 GM TUBE TOP SCH (08:28)
[2023-11-01] MEDS: Pancrelipase DR 12,000 1 CAP PO SCH (08:28)
[2023-11-01] MEDS ORDERED: Pantoprazole DR 40 MG TAB PO SCH (09:00)
[2023-11-01] MEDS ORDERED: Insulin Lispro 100 UNIT/ML 10 ML VIAL SC PRN (13:00)
[2023-11-01 13:22] LABS: INR-International Normal Ratio 1.1; PTT 35.8 sec (22.9-36.1); Prothrombin Time 14.1 sec (12.0-14.7)
[2023-11-01 13:46] LABS: HBCM Index 0.07 S/CO (0-0.79); HBsAg Index 0.27 S/CO (0-0.99); HIV (1/2) Antibody/Antigen NONREACTIVE (NonReactive); HIV 1/2 INDEX 0.33 S/CO (<1.00); Hep A IgM AB NONREACTIVE (NonReactive); Hep A IgM S/CO 0.16 S/CO (0-0.79); Hep B Surf Ag NONREACTIVE S/CO (NonReactive); Hep C IgG Ab NONREACTIVE S/CO (NonReactive); Hep C Index 0.16 S/CO (0-0.79); Hepatitis B Core IgM Abs NONREACTIVE S/CO (NonReactive)
[2023-11-01] MEDS ORDERED: Iopamidol 370 76% 100 ML VIAL ONE (14:15)
[2023-11-01 19:18] LABS: Syphilis Antibody Nonreactive (Nonreactive); Syphilis Antibody Index 0.08 S/CO (<1.00 Non-Reactive)
[2023-11-01] MEDS: Insulin Glargine 30 UNITS/0.3 ML VIAL SC SCH (19:59)
[2023-11-01] MEDS: Latanoprost 0.005% Ophth Soln 2.5 ml Bottle EA EYE SCH (20:02)
[2023-11-01 20:11] LABS: Hematocrit 25.3 % (36.0-47.0); Hemoglobin 8.5 g/dL (12.0-16.0)
[2023-11-02 05:14] LABS: #Basophils 0.04 10x3/uL (0.0-0.2); %Basophils 0.2 % (0.0-1.0); %Eosinophils 0.2 % (0.0-10.0); %Lymphocytes 13.2 % (21.0-51.0); %Monocytes 4.8 % (0.0-10.0); %Neutrophils 80.8 % (42.0-75.0); Hematocrit 25.6 % (36.0-47.0); Hemoglobin 8.6 g/dL (12.0-16.0); Mean Corpuscular HGB CONC 33.6 g/dL (32.0-36.0); Mean Corpuscular Hemoglobin 28.8 pg (27.0-31.0); Mean Corpuscular Volume 85.6 fL (78.0-98.0); Mean Platelet Volume 10.9 fL (7.4-10.4); Platelet Count 295 10x3/uL (130-400); Red Blood Cell (RBC) Count 2.99 mill/uL (4.20-5.40)
[2023-11-02 05:30] LABS: ALT (SGPT) 13 U/L (8-55); AST (SGOT) 10 U/L (5-34); Albumin 1.2 g/dL (3.5-5.0); Alkaline Phosphatase 143 U/L (40-110); Anion Gap 10 mmol/L (10-20); BUN (Urea Nitrogen) 7 mg/dL (9.8-20.1); Bilirubin, Total 0.4 mg/dL (0.2-1.2); Calc. Creatinine Clearance 65 mL/min (70-130); Calcium 7.1 mg/dL (7.8-10.44); Carbon Dioxide 17 mmol/L (22-29); Chloride 107 mmol/L (98-107); Estimated GFR 108; Globulin 3.5 g/dL (2.4-3.5); Glucose 58 mg/dL (70-105); Potassium 3.7 mmol/L (3.5-5.1); Protein, Total 4.7 g/dL (6.0-8.3); Sodium 130 mmol/L (136-145)
[2023-11-02] MEDS: Potassium Chloride 20 MEQ TAB PO SCH (08:38)
[2023-11-02] MEDS ORDERED: PROPOFOL 20 ML ONE (09:34)
[2023-11-02] MEDS ORDERED: Midazolam HCl 2 mg/2 ml Vial ONE (09:34)
[2023-11-02] MEDS ORDERED: Dexamethasone 20 MG/5 ML VIAL ONE (09:34)
[2023-11-02] MEDS ORDERED: Ondansetron PF 4 MG/2 ML Vial ONE (09:34)
[2023-11-02] MEDS ORDERED: fentaNYL 50 mcg/mL 1 mL Vial ONE ×2 (09:34→10:32)
[2023-11-02] MEDS ORDERED: Rocuronium Bromide 10 MG/ML (10ML VIAL) ONE (09:34)
[2023-11-02] MEDS ORDERED: Lidocaine 1% PF 5 ML VIAL ONE (09:34)
[2023-11-02] MEDS ORDERED: ePHEDrine Sulfate 50 MG/10 ML VIAL ONE (10:23)
[2023-11-02] MEDS ORDERED: PHENYLEPHRINE-NS 100 MCG/ML 10 ML SYRINGE ONE (10:38)
[2023-11-02] MEDS: Glucagon 1 MG/ML KIT IM PRN (12:38)
[2023-11-02] MEDS: Insulin Lispro 100 UNIT/ML 10 ML VIAL SC PRN (17:23)
[2023-11-02] MEDS: Insulin Glargine 30 UNITS/0.3 ML VIAL SC SCH (20:20)
[2023-11-03 05:06] LABS: #Basophils Less than 0.03 10x3/uL (0.0-0.2); %Basophils 0.1 % (0.0-1.0); %Eosinophils 0.1 % (0.0-10.0); %Lymphocytes 9.5 % (21.0-51.0); %Monocytes 3.7 % (0.0-10.0); Hemoglobin 7.9 g/dL (12.0-16.0); Mean Corpuscular HGB CONC 32.9 g/dL (32.0-36.0); Mean Corpuscular Hemoglobin 28.6 pg (27.0-31.0); Mean Platelet Volume 11.1 fL (7.4-10.4); Platelet Count 280 10x3/uL (130-400); Red Blood Cell (RBC) Count 2.76 mill/uL (4.20-5.40)
[2023-11-03 05:20] LABS: ALT (SGPT) 13 U/L (8-55); AST (SGOT) 10 U/L (5-34); Albumin 1.3 g/dL (3.5-5.0); Alkaline Phosphatase 194 U/L (40-110); Anion Gap 10 mmol/L (10-20); BUN (Urea Nitrogen) 8 mg/dL (9.8-20.1); Bilirubin, Total 0.2 mg/dL (0.2-1.2); Calc. Creatinine Clearance 45 mL/min (70-130); Carbon Dioxide 19 mmol/L (22-29); Chloride 103 mmol/L (98-107); Estimated GFR 86; Globulin 3.5 g/dL (2.4-3.5); Glucose 285 mg/dL (70-105); Potassium 4.2 mmol/L (3.5-5.1); Protein, Total 4.8 g/dL (6.0-8.3); Sodium 128 mmol/L (136-145)
[2023-11-03] MEDS: Insulin Lispro 100 UNIT/ML 10 ML VIAL SC SCH (08:34)
[2023-11-03] MEDS: cefTRIAXone\\ROCEPHIN 1 GM in Sodium Chloride 0.9% 100 ML IVPB SCH (15:45)
[2023-11-03 17:34] LABS: Creatinine, Urine 30.64 mg/dL (47-110)
[2023-11-03] MEDS: Acetaminophen 325 MG TAB PO PRN (19:34)
[2023-11-04 07:10] LABS: #Basophils Less than 0.03 10x3/uL (0.0-0.2); #Eosinphils Less than 0.03 10x3/uL (0.0-0.7); %Basophils 0.1 % (0.0-1.0); %Eosinophils 0.1 % (0.0-10.0); %Lymphocytes 9.2 % (21.0-51.0); %Monocytes 4.4 % (0.0-10.0); %Neutrophils 85.7 % (42.0-75.0); Hematocrit 26.4 % (36.0-47.0); Hemoglobin 8.3 g/dL (12.0-16.0); Mean Corpuscular HGB CONC 31.4 g/dL (32.0-36.0); Mean Corpuscular Hemoglobin 29.4 pg (27.0-31.0); Mean Corpuscular Volume 93.6 fL (78.0-98.0); Mean Platelet Volume 10.7 fL (7.4-10.4); Platelet Count 277 10x3/uL (130-400); RBC Distribution Width 15.1 % (11.5-14.5); Red Blood Cell (RBC) Count 2.82 mill/uL (4.20-5.40)
[2023-11-04 07:29] LABS: ALT (SGPT) 15 U/L (8-55); AST (SGOT) 25 U/L (5-34); Albumin 1.3 g/dL (3.5-5.0); Alkaline Phosphatase 224 U/L (40-110); Anion Gap 11 mmol/L (10-20); BUN (Urea Nitrogen) 7 mg/dL (9.8-20.1); Bilirubin, Total 0.2 mg/dL (0.2-1.2); Calc. Creatinine Clearance 0 mL/min (70-130); Calcium 7.1 mg/dL (7.8-10.44); Carbon Dioxide 13 mmol/L (22-29); Chloride 107 mmol/L (98-107); Estimated GFR 104; Globulin 3.7 g/dL (2.4-3.5); Glucose 329 mg/dL (70-105); Potassium 4.9 mmol/L (3.5-5.1); Sodium 126 mmol/L (136-145)
[2023-11-04] MEDS: Insulin Lispro 100 UNIT/ML 10 ML VIAL SC SCH (08:48)
[2023-11-04] MEDS: Insulin Glargine 30 UNITS/0.3 ML VIAL SC SCH (10:48)
[2023-11-04 11:15] VITALS: BMI 23.8
[2023-11-04] MEDS ORDERED: Sterile Water 10 ML ONE (14:47)
[2023-11-04] MEDS ORDERED: Bacteriostatic Normal Saline 30 ML VIAL ONE (14:48)
[2023-11-04] MEDS ORDERED: Sincalide 5 MCG VIAL ONE (14:48)
[2023-11-04] MEDS: Sodium Bicarbonate Tab 325 MG TAB PO SCH (15:51)
[2023-11-04] MEDS ORDERED: Insulin Glargine 30 UNITS/0.3 ML VIAL SC SCH (21:00)
[2023-11-05] MEDS: Morphine 4 MG/ML VIAL SLOW IVP SCH (00:32)
[2023-11-05] MEDS: Ibuprofen 600 MG TAB PO PRN (05:52)
[2023-11-05 06:11] LABS: #Basophils 0.04 10x3/uL (0.0-0.2); %Basophils 0.2 % (0.0-1.0); %Eosinophils 0.6 % (0.0-10.0); %Lymphocytes 12.4 % (21.0-51.0); %Monocytes 5.3 % (0.0-10.0); Hematocrit 27.1 % (36.0-47.0); Hemoglobin 8.8 g/dL (12.0-16.0); Mean Corpuscular HGB CONC 32.5 g/dL (32.0-36.0); Mean Corpuscular Hemoglobin 28.9 pg (27.0-31.0); Mean Corpuscular Volume 89.1 fL (78.0-98.0); Mean Platelet Volume 10.9 fL (7.4-10.4); Platelet Count 332 10x3/uL (130-400); Red Blood Cell (RBC) Count 3.04 mill/uL (4.20-5.40)
[2023-11-05 06:23] LABS: Iron 22 ug/dL (50-170); Iron Binding Capacity, Total 90 mcg/dL (265-497)
[2023-11-05 06:24] LABS: ALT (SGPT) 16 U/L (8-55); AST (SGOT) 16 U/L (5-34); Albumin 1.4 g/dL (3.5-5.0); Alkaline Phosphatase 176 U/L (40-110); Anion Gap 10 mmol/L (10-20); BUN (Urea Nitrogen) 6 mg/dL (9.8-20.1); Bilirubin, Total 0.2 mg/dL (0.2-1.2); Calc. Creatinine Clearance 90 mL/min (70-130); Calcium 7.2 mg/dL (7.8-10.44); Carbon Dioxide 18 mmol/L (22-29); Chloride 104 mmol/L (98-107); Estimated GFR 104; Glucose 261 mg/dL (70-105); Potassium 4.5 mmol/L (3.5-5.1); Protein, Total 5.4 g/dL (6.0-8.3); Sodium 127 mmol/L (136-145)
[2023-11-05 06:53] LABS: Ferritin 567.04 ng/mL (10-291)
[2023-11-05] MEDS: Insulin Glargine 30 UNITS/0.3 ML VIAL SC SCH (09:15)
[2023-11-05] MEDS ORDERED: Ondansetron ODT 4 MG TAB PO PRN (15:41)
[2023-11-05] MEDS: Ondansetron ODT 4 MG TAB PO SCH (15:50)
[2023-11-05] MEDS: Ondansetron ORAL SOLN. 4 MG/5 ML UDCUP PO ONE (17:16)
[2023-11-05] MEDS: Lidocaine 2% Viscous Solution 10 ML, Aluminum & Magnesium Hydroxide 30 ML SSW SCH ×2 (18:24→18:25)
[2023-11-06 00:31] LABS: Potassium, Urine 46.2 mmol/L
[2023-11-06 00:37] LABS: Creatinine, Urine 28.71 mg/dL (47-110)
[2023-11-06 09:41] LABS: #Basophils 0.03 10x3/uL (0.0-0.2); %Basophils 0.2 % (0.0-1.0); %Eosinophils 0.2 % (0.0-10.0); %Monocytes 5.8 % (0.0-10.0); %Neutrophils 82.2 % (42.0-75.0); Hemoglobin 7.8 g/dL (12.0-16.0); Mean Corpuscular HGB CONC 32.5 g/dL (32.0-36.0); Mean Corpuscular Hemoglobin 28.7 pg (27.0-31.0); Mean Corpuscular Volume 88.2 fL (78.0-98.0); Mean Platelet Volume 11.3 fL (7.4-10.4); Platelet Count 340 10x3/uL (130-400); RBC Distribution Width 14.9 % (11.5-14.5); Red Blood Cell (RBC) Count 2.72 mill/uL (4.20-5.40)
[2023-11-06 09:59] LABS: ALT (SGPT) 12 U/L (8-55); AST (SGOT) 8 U/L (5-34); Albumin 1.2 g/dL (3.5-5.0); Alkaline Phosphatase 178 U/L (40-110); Anion Gap 10 mmol/L (10-20); BUN (Urea Nitrogen) 7 mg/dL (9.8-20.1); Bilirubin, Total 0.1 mg/dL (0.2-1.2); Calc. Creatinine Clearance 88 mL/min (70-130); Calcium 7.2 mg/dL (7.8-10.44); Carbon Dioxide 21 mmol/L (22-29); Chloride 105 mmol/L (98-107); Estimated GFR 104; Globulin 3.6 g/dL (2.4-3.5); Glucose 205 mg/dL (70-105); Potassium 4.4 mmol/L (3.5-5.1); Protein, Total 4.8 g/dL (6.0-8.3); Sodium 132 mmol/L (136-145)
[2023-11-06] MEDS: HYDROcodone/Acetaminophen 5/325 mg Tablet PO PRN (12:06)
[2023-11-06] MEDS: Cephalexin 250 MG CAP PO SCH (12:07)
[2023-11-06 12:34] LABS: ANA Symphony (Qualitative) Negative (Negative); ANA Symphony (Quantitative) 0.4 Ratio (< 0.7 Negative); dsDNA IgG Antibody 1.7 IU/mL (<10 Negative)
[2023-11-06] MEDS: Ketorolac Tromethamine 10 MG TAB PO SCH (16:15)
[2023-11-06 16:17] LABS: A/G Ratio 0.5 (0.7-1.7); Albumin 1.7 g/dL (2.9-4.4); Alpha 1 0.3 g/dL (0.0-0.4); Alpha 2 0.7 g/dL (0.4-1.0); Beta 0.6 g/dL (0.7-1.3); Gamma 1.7 g/dL (0.4-1.8); Globulin, Total 3.3 g/dL (2.2-3.9); M-Spike 0.2 g/dL (Not Observed)
[2023-11-06] MEDS: Insulin Glargine 30 UNITS/0.3 ML VIAL SC SCH (20:16)
[2023-11-07 06:46] LABS: #Basophils 0.05 10x3/uL (0.0-0.2); %Basophils 0.2 % (0.0-1.0); %Eosinophils 0.3 % (0.0-10.0); %Lymphocytes 10.4 % (21.0-51.0); %Monocytes 5.4 % (0.0-10.0); %Neutrophils 83.1 % (42.0-75.0); Hematocrit 24.2 % (36.0-47.0); Hemoglobin 7.8 g/dL (12.0-16.0); Mean Corpuscular HGB CONC 32.2 g/dL (32.0-36.0); Mean Corpuscular Hemoglobin 28.6 pg (27.0-31.0); Mean Corpuscular Volume 88.6 fL (78.0-98.0); Mean Platelet Volume 11.1 fL (7.4-10.4); Platelet Count 372 10x3/uL (130-400); RBC Distribution Width 15.2 % (11.5-14.5); Red Blood Cell (RBC) Count 2.73 mill/uL (4.20-5.40)
[2023-11-07 07:13] LABS: ALT (SGPT) 11 U/L (8-55); AST (SGOT) 8 U/L (5-34); Albumin 1.2 g/dL (3.5-5.0); Alkaline Phosphatase 167 U/L (40-110); Anion Gap 10 mmol/L (10-20); BUN (Urea Nitrogen) 9 mg/dL (9.8-20.1); Bilirubin, Total 0.2 mg/dL (0.2-1.2); Calc. Creatinine Clearance 85 mL/min (70-130); Calcium 7.2 mg/dL (7.8-10.44); Carbon Dioxide 20 mmol/L (22-29); Chloride 107 mmol/L (98-107); Estimated GFR 103; Globulin 3.5 g/dL (2.4-3.5); Glucose 174 mg/dL (70-105); Potassium 4.7 mmol/L (3.5-5.1); Protein, Total 4.7 g/dL (6.0-8.3); Sodium 132 mmol/L (136-145)
[2023-11-07 10:18] LABS: Kappa Lambda Light Chain Ratio 1.01 (0.26-1.65); Lambda Light Chain 118.3 mg/L (5.7-26.3)
[2023-11-07] MEDS: Ketorolac Tromethamine 10 MG TAB PO SCH (11:29)
[2023-11-08 08:11] LABS: #Basophils 0.03 10x3/uL (0.0-0.2); %Basophils 0.1 % (0.0-1.0); %Eosinophils 0.4 % (0.0-10.0); %Lymphocytes 11.3 % (21.0-51.0); %Monocytes 5.5 % (0.0-10.0); Hematocrit 27.3 % (36.0-47.0); Hemoglobin 8.8 g/dL (12.0-16.0); Mean Corpuscular HGB CONC 32.2 g/dL (32.0-36.0); Mean Corpuscular Hemoglobin 28.7 pg (27.0-31.0); Mean Corpuscular Volume 88.9 fL (78.0-98.0); Mean Platelet Volume 10.8 fL (7.4-10.4); Platelet Count 429 10x3/uL (130-400); RBC Distribution Width 15.2 % (11.5-14.5); Red Blood Cell (RBC) Count 3.07 mill/uL (4.20-5.40)
[2023-11-08 08:33] LABS: ALT (SGPT) 13 U/L (8-55); AST (SGOT) 11 U/L (5-34); Albumin 1.3 g/dL (3.5-5.0); Alkaline Phosphatase 171 U/L (40-110); Anion Gap 8 mmol/L (10-20); BUN (Urea Nitrogen) 8 mg/dL (9.8-20.1); Bilirubin, Total 0.2 mg/dL (0.2-1.2); Calc. Creatinine Clearance 85 mL/min (70-130); Calcium 7.6 mg/dL (7.8-10.44); Carbon Dioxide 22 mmol/L (22-29); Chloride 106 mmol/L (98-107); Estimated GFR 103; Globulin 4.1 g/dL (2.4-3.5); Glucose 132 mg/dL (70-105); Potassium 4.2 mmol/L (3.5-5.1); Protein, Total 5.4 g/dL (6.0-8.3); Sodium 132 mmol/L (136-145)
[2023-11-08] MEDS: Naproxen 500 MG TAB PO SCH (08:33)
[2023-11-08 09:57] VITALS: BMI 23.6
[2023-11-08 15:18] LABS: Alpha 1 - Ur 4.4 % (.); Alpha 2 - Ur 12.5 % (.); Beta-Ur 32.4 % (.); Gamma-Ur 43.7 % (.); M-Spike,% Not Observed % (Not Observed); Protein, Urine 13.1 mg/dL (Not Estab.)
[2023-11-08] MEDS: Ondansetron ODT 4 MG TAB PO SCH (15:42)
[2023-11-08] MEDS: HYDROcodone/Acetaminophen 5/325 mg Tablet PO PRN (15:42)
[2023-11-09 05:13] LABS: #Basophils 0.03 10x3/uL (0.0-0.2); %Basophils 0.2 % (0.0-1.0); %Eosinophils 0.3 % (0.0-10.0); %Lymphocytes 12.6 % (21.0-51.0); %Monocytes 5.2 % (0.0-10.0); %Neutrophils 81.2 % (42.0-75.0); Hematocrit 26.1 % (36.0-47.0); Hemoglobin 8.1 g/dL (12.0-16.0); Mean Corpuscular Hemoglobin 28.8 pg (27.0-31.0); Mean Corpuscular Volume 92.9 fL (78.0-98.0); Mean Platelet Volume 10.6 fL (7.4-10.4); Platelet Count 426 10x3/uL (130-400); RBC Distribution Width 15.3 % (11.5-14.5); Red Blood Cell (RBC) Count 2.81 mill/uL (4.20-5.40)
[2023-11-09 05:32] LABS: ALT (SGPT) 11 U/L (8-55); AST (SGOT) 7 U/L (5-34); Albumin 1.3 g/dL (3.5-5.0); Alkaline Phosphatase 159 U/L (40-110); Anion Gap 9 mmol/L (10-20); BUN (Urea Nitrogen) 9 mg/dL (9.8-20.1); Bilirubin, Total 0.1 mg/dL (0.2-1.2); Calc. Creatinine Clearance 73 mL/min (70-130); Calcium 7.5 mg/dL (7.8-10.44); Carbon Dioxide 20 mmol/L (22-29); Chloride 111 mmol/L (98-107); Estimated GFR 95; Glucose 165 mg/dL (70-105); Potassium 3.9 mmol/L (3.5-5.1); Protein, Total 5.3 g/dL (6.0-8.3); Sodium 136 mmol/L (136-145)
[2023-11-09] MEDS ORDERED: Insulin Glargine 30 UNITS/0.3 ML VIAL SC SCH ×2 (13:00→21:00)
[2023-11-09 16:42] VITALS: BP 114/72; TEMP 97.5
[2023-11-09] MEDS: HYDROcodone/Acetaminophen 5/325 mg Tablet PO PRN (17:48)
== END 2023-11-09 18:55 | DRG 570 ==
LOC: ERS 11:46 → MSONC 16:01 → OBSVTOIN 11-01 14:50
PROVIDERS: ADMIT Student in an Organized Health Care Education/Training Program; ATTEND Student in an Organized Health Care Education/Training Program
PROC: 30233N1 Transfusion of Nonautologous Red Blood Cells into Peripheral Vein, Percutaneous Approach (ICD-10-PCS; 2023-11-01)
PROC: 0JB70ZZ Excision of Back Subcutaneous Tissue and Fascia, Open Approach (ICD-10-PCS; 2023-11-02)
PROC: 0JB90ZZ Excision of Buttock Subcutaneous Tissue and Fascia, Open Approach (ICD-10-PCS; principal; 2023-11-06)
DX: L89.154 Pressure ulcer of sacral region, stage 4 (principal); E43 Unspecified severe protein-calorie malnutrition; N39.0 Urinary tract infection, site not specified; E87.20 Acidosis, unspecified; E22.2 Syndrome of inappropriate secretion of antidiuretic hormone; K86.1 Other chronic pancreatitis; D64.9 Anemia, unspecified; K21.9 Gastro-esophageal reflux disease without esophagitis; E88.09 Other disorders of plasma-protein metabolism, not elsewhere classified; E11.649 Type 2 diabetes mellitus with hypoglycemia without coma; N18.1 Chronic kidney disease, stage 1; E11.22 Type 2 diabetes mellitus with diabetic chronic kidney disease; I12.9 Hypertensive chronic kidney disease with stage 1 through stage 4 chronic kidney disease, or unspecified chronic kidney disease; E11.65 Type 2 diabetes mellitus with hyperglycemia; Z79.899 Other long term (current) drug therapy
CPT/HCPCS: 36415; 36416; 36430; 51702; 71260; 74177; 76705; 78227; 80053; 80074; 80202; 81001; 82306; 82390; 82436; 82570; 82607; 82728; 83540; 83550; 83605; 83690; 83883; 83930; 83935; 83970; 84133; 84155; 84156; 84165; 84166; 84300; 85025; 85610; 85730; 86038; 86141; 86225; 86780; 86850; 86900; 86901; 87040; 87070; 87077; 87086; 87186; 87205; 87389; 88305; 93005; 96365; 96375; 96376; 97139; A9537; G0378; J0692; J0696; J1100; J1611; J1815; J2250; J2272; J2405; J2704; J2805; J3010; J3370; J3370-JW; J7120; P9016; Q0162; Q9967

== ENCOUNTER 2023-11-25 08:38 | Inpatient (IN) | payer OTHER ==
[2023-11-25 09:19] LABS: Actual Bicarbonate (HCO3v) 15.5 mEq/L (22-28); Analyzer IN Cardio ER; Base Excess -10.6 mEq/L (-2.0 to +3.0); Calcium, Ionized (venous) 1.16 mmol/L (1.16-1.32); Chloride (VBG) 106 mmol/L (98-106); Hematocrit-VBG 31 % (36.0-47.0); Hemoglobin (Hb) 10.4 g/dL (11.7-16.0); Potassium (VBG) 3.89 mmol/L (3.70-5.30); Sodium 130 mmol/L (133-146)
[2023-11-25] MEDS ORDERED: fentaNYL 50 mcg/mL 1 mL Vial ONE (09:22)
[2023-11-25] MEDS ORDERED: NOREPINEPHRINE 8 MG/250 ML-D5W 0 ML ONE (09:22)
[2023-11-25] MEDS ORDERED: Piperacillin/Tazobactam 4.5 GM VIAL ONE (09:22)
[2023-11-25] MEDS ORDERED: Sodium Chloride 0.9% 100 ML ONE (09:23)
[2023-11-25] MEDS ORDERED: NOREPINEPHRINE 8 MG/250 ML-D5W 250 ML ONE (09:23)
[2023-11-25 09:25] LABS: Hematocrit 24.4 % (36.0-47.0); Mean Corpuscular HGB CONC 32.8 g/dL (32.0-36.0); Mean Corpuscular Hemoglobin 28.3 pg (27.0-31.0); Mean Corpuscular Volume 86.2 fL (78.0-98.0); Platelet Count 43 10x3/uL (130-400); RBC Distribution Width 16.9 % (11.5-14.5); Red Blood Cell (RBC) Count 2.83 mill/uL (4.20-5.40)
[2023-11-25 09:37] LABS: INR-International Normal Ratio 1.3; Prothrombin Time 16.1 sec (12.0-14.7)
[2023-11-25 09:40] LABS: ALT (SGPT) 12 U/L (8-55); AST (SGOT) 11 U/L (5-34); Albumin 0.8 g/dL (3.5-5.0); Alkaline Phosphatase 173 U/L (40-110); Anion Gap 12 mmol/L (10-20); BUN (Urea Nitrogen) 34 mg/dL (9.8-20.1); Bilirubin, Total 0.2 mg/dL (0.2-1.2); Calc. Creatinine Clearance 0 mL/min (70-130); Calcium 7.4 mg/dL (7.8-10.44); Carbon Dioxide 11 mmol/L (22-29); Chloride 108 mmol/L (98-107); Estimated GFR 79; Globulin 3.3 g/dL (2.4-3.5); Glucose 227 mg/dL (70-105); Lipase Less than 4 U/L (8-78); Magnesium 1.4 mg/dL (1.6-2.6); Potassium 4.1 mmol/L (3.5-5.1); Protein, Total 4.1 g/dL (6.0-8.3); Sodium 127 mmol/L (136-145)
[2023-11-25 10:02] LABS: Anisocytosis MARKED = >30 cells HPF (0-5); Band 3 % (5-11); Burr Cells MODERATE= 6-15 cells HPF (0-1); Large Platelets 5.7 % (0-5); Lymphocytes 1 % (21-51); Macrocytosis MODERATE=16-30 cells HPF (0-5); Monocytes 40 % (0-10); Neutrophil 56 % (42-75); Ovalocytes SLIGHT = 2-5 cells HPF (0-1); Platelet Adequacy Comment Significant Decrease; Poikilocytosis MARKED = >30 cells HPF (0-5); Polychromasia SLIGHT = 2-3 cells HPF (0-2)
[2023-11-25] MEDS ORDERED: Iopamidol-370 76% 500 ML MDV (1 ML CHARGE) ONE (10:25)
[2023-11-25 11:59] LABS: Bacteria/HPF 4+ HPF (None Seen); Bilirubin Negative (Negative); Blood, Urine 1+ (Negative); CAUTI Indications for Culture Pelvic or flank pain; Clarity Extra Turbid (Clear); Glucose, Urine (Dipstick) Normal (Negative); Ketone, Urine Negative (Negative); Leukocyte 500 Leu/uL (Negative); Nitrite Negative (Negative); Protein, Urine (Dipstick) 50 mg/dL (Neg-Trace); Specific Gravity, Urine 1.012 (1.002-1.036); Squamous Epithelial None Seen HPF (0-3); Urobilinogen Normal mg/dL (Less than 2); WBC/HPF Greater than 50 HPF (0-3); pH, Urine 5.5 (5.0-9.0)
[2023-11-25 12:02] LABS: Urine Culture Reflex Yes Yes
[2023-11-25 12:29] LABS: Lactic Acid 3.06 mmol/L (0.5-2.2)
[2023-11-25] MEDS ORDERED: Electrolyte Replacement Protocol 1 EACH FS SCH (13:23)
[2023-11-25 14:28] VITALS: BMI 19.5
[2023-11-25] MEDS: Vancomycin (BATCH) 1.25 GM in Premix 1 BAG IVPB SCH (15:26)
[2023-11-25] MEDS: Piperacillin/Tazobactam 3.375 GM in Sodium Chloride 0.9% 100 ML IVPB SCH (15:27)
[2023-11-25] MEDS: Magnesium 2 GM/50 ML(in water) 2 GM in Premix 1 BAG IVPB SCH (15:27)
[2023-11-25] MEDS: Sodium Chloride 0.9% 1,000 ML IV SCH (15:28)
[2023-11-25] MEDS: NOREPINEPHRINE 8 MG/250 ML-D5W 250 ML IVPB SCH (15:28)
[2023-11-25] MEDS ORDERED: Piperacillin/Tazobactam 4.5 GM in Sodium Chloride 0.9% 100 ML IVPB SCH (16:00)
[2023-11-25] MEDS ORDERED: Dextrose 5% in Water 1,000 ML IV PRN (16:34)
[2023-11-25] MEDS ORDERED: Glucagon 1 MG/ML KIT IM PRN (16:34)
[2023-11-25] MEDS: Lactated Ringer's 1,000 ML IV SCH (16:53)
[2023-11-25] MEDS: fentaNYL 50 mcg/mL 1 mL Vial SLOW IVP PRN (21:08)
[2023-11-25] MEDS: Insulin Glargine 30 UNITS/0.3 ML VIAL SC SCH (21:09)
[2023-11-25] MEDS: Vancomycin HCl 750 MG in Sodium Chloride 0.9% 250 ML 250 ML IVPB SCH (21:10)
[2023-11-25] MEDS: Insulin Lispro 100 UNIT/ML 10 ML VIAL SC PRN (21:25)
[2023-11-25] MEDS: Albumin 25% 25 GM (100 mL) BOT IVPB SCH (22:37)
[2023-11-25] MEDS: Calcium Chloride 13.6 MEQ in Sodium Chloride 0.9% 100 ML IVPB SCH (23:01)
[2023-11-26] MEDS: Albumin 25% 25 GM (100 mL) BOT IVPB SCH (00:22)
[2023-11-26] MEDS: Albumin 25% 100 ML ONE (00:22)
[2023-11-26] MEDS: Dextrose 50% Abboject 50 ML SYRINGE SLOW IVP PRN (06:32)
[2023-11-26 06:48] LABS: Lactic Acid 1.16 mmol/L (0.5-2.2)
[2023-11-26 06:50] LABS: Vancomycin, Random 25.6 ug/mL (See Comment)
[2023-11-26 06:55] LABS: ALT (SGPT) 7 U/L (8-55); AST (SGOT) 7 U/L (5-34); Albumin 2.5 g/dL (3.5-5.0); Alkaline Phosphatase 83 U/L (40-110); Anion Gap 15 mmol/L (10-20); BUN (Urea Nitrogen) 33 mg/dL (9.8-20.1); Bilirubin, Total 0.4 mg/dL (0.2-1.2); Calc. Creatinine Clearance 57 mL/min (70-130); Calcium 7.9 mg/dL (7.8-10.44); Carbon Dioxide 13 mmol/L (22-29); Chloride 112 mmol/L (98-107); Estimated GFR 80; Globulin 1.7 g/dL (2.4-3.5); Glucose 60 mg/dL (70-105); Magnesium 1.9 mg/dL (1.6-2.6); Potassium 3.1 mmol/L (3.5-5.1); Protein, Total 4.2 g/dL (6.0-8.3); Sodium 137 mmol/L (136-145)
[2023-11-26] MEDS ORDERED: Vasopressin 20 UNITS/ML VIAL ONE (06:57)
[2023-11-26] MEDS ORDERED: Lidocaine 2% PF 5 ML VIAL ONE (06:59)
[2023-11-26] MEDS ORDERED: PROPOFOL 20 ML ONE (06:59)
[2023-11-26] MEDS ORDERED: Rocuronium Bromide 10 MG/ML (10ML VIAL) ONE (06:59)
[2023-11-26] MEDS ORDERED: Albumin 5% 0 ML ONE (07:20)
[2023-11-26] MEDS ORDERED: Magnesium 2 GM/50 ML(in water) 2 GM in Premix 1 BAG IVPB SCH (07:30)
[2023-11-26] MEDS ORDERED: MINERAL OIL/WHITE PETROLATUM 3.5 GM TUBE ONE (08:00)
[2023-11-26 08:22] LABS: Reflex for Review?? YES
[2023-11-26 08:23] LABS: Hematocrit 13.9 % (36.0-47.0); Hemoglobin 4.5 g/dL (12.0-16.0); Mean Corpuscular HGB CONC 32.4 g/dL (32.0-36.0); Mean Corpuscular Hemoglobin 27.8 pg (27.0-31.0); Mean Corpuscular Volume 85.8 fL (78.0-98.0); Platelet Count 23 10x3/uL (130-400); RBC Distribution Width 16.6 % (11.5-14.5); Red Blood Cell (RBC) Count 1.62 mill/uL (4.20-5.40)
[2023-11-26 08:48] LABS: Band 10 % (5-11); Lymphocytes 19 % (21-51); Monocytes 6 % (0-10); Neutrophil 63 % (42-75); Platelet Adequacy Comment Significant Decrease; RBC Morphology Within Normal Limits; Reactive Lymphocytes 1 % (0-10)
[2023-11-26] MEDS ORDERED: Enoxaparin 40 MG (0.4 mL) SYRINGE SC SCH (09:00)
[2023-11-26] MEDS: Potassium Chloride 20 MEQ in Premix 1 BAG IVPB SCH ×2 (09:28→16:55)
[2023-11-26 10:12] LABS: Hematocrit 14.7 % (36.0-47.0); Hemoglobin 4.5 g/dL (12.0-16.0); Mean Corpuscular HGB CONC 30.6 g/dL (32.0-36.0); Mean Corpuscular Volume 91.3 fL (78.0-98.0); Platelet Count 27 10x3/uL (130-400); RBC Distribution Width 17.3 % (11.5-14.5); Red Blood Cell (RBC) Count 1.61 mill/uL (4.20-5.40)
[2023-11-26 10:13] LABS: #Basophils Less than 0.03 10x3/uL (0.0-0.2); #Eosinophils Less than 0.03 10x3/uL (0.0-0.7); %Basophils 0.1 % (0.0-1.0); %Eosinophils 0.3 % (0.0-10.0); %Lymphocytes 15.5 % (21.0-51.0); %Monocytes 2.9 % (0.0-10.0); %Neutrophils 80.5 % (42.0-75.0)
[2023-11-26] MEDS: Pantoprazole 40 MG VIAL IVP SCH (10:42)
[2023-11-26] MEDS: Magnesium 2 GM/50 ML(in water) 2 GM in Premix 1 BAG IVPB SCH (13:49)
[2023-11-26] MEDS: Vancomycin HCl 500 MG in Sodium Chloride 0.9% 100 ML IV SCH (14:21)
[2023-11-26 15:27] VITALS: BMI 20.5
[2023-11-26 15:52] LABS: Potassium 3.4 mmol/L (3.5-5.1)
[2023-11-26 19:40] LABS: Hematocrit 22.1 % (36.0-47.0); Hemoglobin 7.3 g/dL (12.0-16.0)
[2023-11-26] MEDS: Insulin Lispro 100 UNIT/ML 10 ML VIAL SC PRN (20:32)
[2023-11-26 23:08] LABS: Potassium 4.2 mmol/L (3.5-5.1)
[2023-11-27 03:40] LABS: Hematocrit 26.2 % (36.0-47.0); Hemoglobin 9.1 g/dL (12.0-16.0); Mean Corpuscular HGB CONC 34.7 g/dL (32.0-36.0); Mean Corpuscular Hemoglobin 29.8 pg (27.0-31.0); Mean Corpuscular Volume 85.9 fL (78.0-98.0); Platelet Count 19 10x3/uL (130-400); RBC Distribution Width 15.6 % (11.5-14.5); Red Blood Cell (RBC) Count 3.05 mill/uL (4.20-5.40)
[2023-11-27 03:47] LABS: Platelet Count 19 10x3/uL (130-400)
[2023-11-27 03:54] LABS: Fibrinogen 190 mg/dL (253-463)
[2023-11-27 03:55] LABS: D-Dimer Test 3.42 mcg/mL (0.27-0.43); INR-International Normal Ratio 1.8; PTT 47.5 sec (22.9-36.1); Prothrombin Time 21.4 sec (12.0-14.7)
[2023-11-27 05:12] LABS: Band 9 % (5-11); Burr Cells MODERATE= 6-15 cells HPF (0-1); Large Platelets 1.9 % (0-5); Lymphocytes 5 % (21-51); Monocytes 3 % (0-10); Neutrophil 84 % (42-75); Platelet Adequacy Comment Significant Decrease; Polychromasia SLIGHT = 2-3 cells HPF (0-2); RBC Morphology Within Normal Limits; Smudge Cells 10.7 %
[2023-11-27 06:10] LABS: ALT (SGPT) 6 U/L (8-55); AST (SGOT) 7 U/L (5-34); Albumin 2.4 g/dL (3.5-5.0); Alkaline Phosphatase 83 U/L (40-110); Anion Gap 11 mmol/L (10-20); BUN (Urea Nitrogen) 25 mg/dL (9.8-20.1); Bilirubin, Total 1.1 mg/dL (0.2-1.2); Calc. Creatinine Clearance 64 mL/min (70-130); Calcium 7.6 mg/dL (7.8-10.44); Carbon Dioxide 13 mmol/L (22-29); Chloride 119 mmol/L (98-107); Estimated GFR 87; Globulin 1.7 g/dL (2.4-3.5); Glucose 192 mg/dL (70-105); Magnesium 2.1 mg/dL (1.6-2.6); Potassium 3.3 mmol/L (3.5-5.1); Protein, Total 4.1 g/dL (6.0-8.3); Sodium 140 mmol/L (136-145)
[2023-11-27] MEDS: Potassium Chloride 20 MEQ in Premix 1 BAG IVPB SCH (07:31)
[2023-11-27] MEDS: Lactated Ringer's 1,000 ML IV SCH (09:05)
[2023-11-27] MEDS ORDERED: Iopamidol 370 76% 100 ML VIAL ONE (11:07)
[2023-11-27 13:33] LABS: Potassium 3.8 mmol/L (3.5-5.1)
[2023-11-27 17:07] VITALS: BP 97/60
[2023-11-27] MEDS ORDERED: Etomidate 40 MG (20 mL) VIAL ONE (19:46)
[2023-11-27] MEDS ORDERED: Ondansetron PF 4 MG/2 ML Vial ONE (19:49)
[2023-11-27] MEDS ORDERED: SUGAMMADEX SODIUM 200 MG/2 ML VIAL ONE (19:49)
[2023-11-27] MEDS ORDERED: Lidocaine 1% PF 5 ML VIAL ONE (19:49)
[2023-11-27] MEDS ORDERED: fentaNYL PF 100 MCG/2 ML SYRINGE ONE (19:49)
[2023-11-27] MEDS ORDERED: Rocuronium Bromide 10 MG/ML (10ML VIAL) ONE (19:49)
[2023-11-27] MEDS ORDERED: PHENYLEPHRINE-NS 100 MCG/ML 10 ML SYRINGE ONE (20:50)
[2023-11-27] MEDS ORDERED: Ondansetron HCl/PF 4 MG/2 ML Vial IVP PRN (21:28)
[2023-11-27] MEDS ORDERED: Promethazine HCl 25 MG/ML VIAL IM PRN (21:28)
[2023-11-28] MEDS: Lactated Ringer's 1,000 ML IV SCH (05:50)
[2023-11-28 05:59] LABS: Hematocrit 16.4 % (36.0-47.0); Hemoglobin 5.1 g/dL (12.0-16.0); Mean Corpuscular HGB CONC 31.1 g/dL (32.0-36.0); Mean Corpuscular Hemoglobin 28.7 pg (27.0-31.0); Mean Corpuscular Volume 92.1 fL (78.0-98.0); Platelet Count 32 10x3/uL (130-400); RBC Distribution Width 16.6 % (11.5-14.5); Red Blood Cell (RBC) Count 1.78 mill/uL (4.20-5.40)
[2023-11-28 06:04] LABS: Platelet Count 32 10x3/uL (130-400)
[2023-11-28 06:12] LABS: Vancomycin, Random 30.6 ug/mL (See Comment)
[2023-11-28 06:22] LABS: ALT (SGPT) 8 U/L (8-55); AST (SGOT) 9 U/L (5-34); Alkaline Phosphatase 69 U/L (40-110); Anion Gap 14 mmol/L (10-20); BUN (Urea Nitrogen) 23 mg/dL (9.8-20.1); Bilirubin, Total 0.7 mg/dL (0.2-1.2); Calc. Creatinine Clearance 61 mL/min (70-130); Calcium 7.8 mg/dL (7.8-10.44); Carbon Dioxide 12 mmol/L (22-29); Chloride 120 mmol/L (98-107); Estimated GFR 82; Globulin 1.9 g/dL (2.4-3.5); Glucose 188 mg/dL (70-105); Potassium 3.1 mmol/L (3.5-5.1); Protein, Total 3.9 g/dL (6.0-8.3); Sodium 143 mmol/L (136-145)
[2023-11-28 06:33] LABS: Lactic Acid 3.61 mmol/L (0.5-2.2)
[2023-11-28 06:47] LABS: Fibrinogen 156 mg/dL (253-463)
[2023-11-28 06:48] LABS: INR-International Normal Ratio 1.9; PTT 45.3 sec (22.9-36.1); Prothrombin Time 21.6 sec (12.0-14.7)
[2023-11-28 06:49] LABS: D-Dimer Test 3.26 mcg/mL (0.27-0.43)
[2023-11-28] MEDS ORDERED: MD-Gastroview 120 ML BOT ONE (07:07)
[2023-11-28 07:31] LABS: Anisocytosis SLIGHT = 6-15 cells HPF (0-5); Band 5 % (5-11); Large Platelets 5.7 % (0-5); Lymphocytes 7 % (21-51); Macrocytosis SLIGHT = 6-15 cells HPF (0-5); Metamyelocyte 2 % (0-0); Monocytes 4 % (0-10); Myelocyte 1 % (0-0); Neutrophil 82 % (42-75); Platelet Adequacy Comment Platelets Decreased; Polychromasia SLIGHT = 2-3 cells HPF (0-2); Smudge Cells 5.7 %
[2023-11-28] MEDS: Potassium Chloride 20 MEQ in Premix 1 BAG IVPB SCH (08:16)
[2023-11-28] MEDS: Acetaminophen 325 MG TAB PO PRN (09:08)
[2023-11-28] MEDS ORDERED: Ondansetron ODT 4 MG TAB PO PRN (09:49)
[2023-11-28] MEDS: fentaNYL 50 mcg/mL 1 mL Vial SLOW IVP SCH (11:04)
[2023-11-28 12:13] VITALS: TEMP 97
[2023-11-28] MEDS: Vancomycin HCl 750 MG in Sodium Chloride 0.9% 250 ML 250 ML IVPB SCH (12:46)
[2023-11-28] MEDS: fentaNYL 50 mcg/mL 1 mL Vial SLOW IVP PRN (13:37)
[2023-11-28] MEDS ORDERED: FLU (Fluarix Triv) TS24-25(6MOS UP)/PF 45 MCG/0.5 ML Syringe IM ONE (15:00)
== END 2023-11-28 14:06 | disposition home or self-care (01) | DRG 853 ==
LOC: ERS 08:38 → CCU 12:43
PROVIDERS: ADMIT Student in an Organized Health Care Education/Training Program; ATTEND Student in an Organized Health Care Education/Training Program
PROC: 3E033XZ Introduction of Vasopressor into Peripheral Vein, Percutaneous Approach (ICD-10-PCS; 2023-11-25)
PROC: 3E03329 Introduction of Other Anti-infective into Peripheral Vein, Percutaneous Approach (ICD-10-PCS; 2023-11-25)
PROC: 30233J1 Transfusion of Nonautologous Serum Albumin into Peripheral Vein, Percutaneous Approach (ICD-10-PCS; 2023-11-25)
PROC: 30233N1 Transfusion of Nonautologous Red Blood Cells into Peripheral Vein, Percutaneous Approach (ICD-10-PCS; 2023-11-26)
PROC: 0KBP0ZZ Excision of Left Hip Muscle, Open Approach (ICD-10-PCS; principal; 2023-11-27)
PROC: 6A551Z2 Pheresis of Platelets, Multiple (ICD-10-PCS; 2023-11-27)
PROC: 30233R1 Transfusion of Nonautologous Platelets into Peripheral Vein, Percutaneous Approach (ICD-10-PCS; 2023-11-27)
PROC: 30233K1 Transfusion of Nonautologous Frozen Plasma into Peripheral Vein, Percutaneous Approach (ICD-10-PCS; 2023-11-28)
PROC: 30233M1 Transfusion of Nonautologous Plasma Cryoprecipitate into Peripheral Vein, Percutaneous Approach (ICD-10-PCS; 2023-11-28)
DX: A41.9 Sepsis, unspecified organism (principal); D65 Disseminated intravascular coagulation [defibrination syndrome]; G93.41 Metabolic encephalopathy; L89.154 Pressure ulcer of sacral region, stage 4; R65.21 Severe sepsis with septic shock; D62 Acute posthemorrhagic anemia; E87.20 Acidosis, unspecified; E87.1 Hypo-osmolality and hyponatremia; N39.0 Urinary tract infection, site not specified; E83.42 Hypomagnesemia; Z90.710 Acquired absence of both cervix and uterus; E11.9 Type 2 diabetes mellitus without complications; Z88.8 Allergy status to other drugs, medicaments and biological substances; Z91.048 Other nonmedicinal substance allergy status; Z51.5 Encounter for palliative care; E86.0 Dehydration
CPT/HCPCS: 36415; 36416; 36430; 70450; 70496; 71045; 74018; 74177; 80053; 80202; 81001; 82306; 82805; 83605; 83690; 83735; 83880; 84134; 84145; 84443; 85025; 85049; 85060; 85300; 85362; 85384; 85610; 85730; 86141; 86850; 86900; 86901; 87040; 87070; 87077; 87086; 87149; 87186; 87205; 87324; 87428; 87449; 93005; 96365; 96366; 96367; 96375; 97139; 99292; C1889; J1815; J2001; J2405; J2470; J2543; J2704; J3010; J3370; J3475; J3480; J7030; J7050; J7120; J7999; P9012; P9016; P9035; P9045; P9047; P9059; Q9963; Q9967